=== PATIENT | female | born 1980 | race Caucasian/White ===

== ENCOUNTER 2017-09-09 23:58 | Emergency (ER) | payer MEDICAID, SELFPAY ==
[2017-09-09 23:58] VITALS: BP 126/78; PULSE 130; RESP 19; TEMP 36.7; O2SAT 95; BMI 24.7
[2017-09-10 00:45] LABS: Vista UDS pH Range 6
[2017-09-10 00:48] LABS: Absolute Lymphocyte Count 3.48 X10^3/ul (0.83-4.51); Basophil# 0.03 X10^3/uL; Basophil% 0.4 % (0-1); Eosinophil# 0.46 X10^3/uL; Eosinophils% 5.5 % (0-5); Hematocrit 43.5 % (37-47); Hemoglobin 15.2 g/dl (12.0-15.0); Lymphocyte # 3.48 X10^3/ul (4.0); Lymphocyte % 41.9 % (19-41); Mean Corp Hgb Conc 34.9 g/gl (32-36); Mean Corpuscular Hgb 30.8 pg (27.0-32.0); Mean Corpuscular Volume 88.1 fL (81-99); Mean Platelet Vol. 10.4 fl (6.2-12.0); Monocyte% 3.6 % (0-10); Neutrophil # 4.03 X10^3/uL (2.7-7.7); Neutrophil % 48.5 % (47-70); Platelet Count 323 K/mm3 (150-450); RBC Distribution Width CV 12.8 % (11.6-14.6); RBC Distribution Width SD 40.9 fl (35.1-43.9); Red Blood Count 4.94 M/mm3 (4.2-5.4); White Blood Count 8.3 K/mm3 (4.4-11.0)
[2017-09-10 00:53] LABS: Amphetamine Urine VISTA NEGATIVE (<1000 ng/mL); Barbiturate Urine VISTA NEGATIVE (< 200 ng/mL); Benzodiazepine Urine VISTA NEGATIVE (< 200 ng/mL); Cocaine Urine VISTA NEGATIVE (< 300 ng/mL); Ecstacy Urine VISTA NEGATIVE (< 500 ng/mL); Methadone Urine VISTA NEGATIVE (< 300 ng/mL); PCP Urine VISTA NEGATIVE (< 25 ng/mL); THC Urine VISTA POSITIVE (< 50 ng/mL)
[2017-09-10 00:53] LABS: POSITIVE COUNT NO; POSITIVE DIFFERENTIAL NO; POSITIVE MORPHOLOGY NO
[2017-09-10 00:55] LABS: Anion Gap 15 (5-15); BUN 9 mg/dL (7-18); BUN/Creat Ratio 12.6 RATIO (10-20); Chloride 100 mmol/L (98-107); Creatinine, Serum 0.72 mg/dL (0.55-1.02); EST Glomerular Filtration Rate 99 mL/min (>60); Est Glom Filt Rate - Afr Amer 120 mL/min (>60); Estimated Creatinine Clearance 91.07 ml/min; Glucose 397 mg/dL (74-106); Potassium 3.4 mmol/L (3.5-5.1); Sodium Level 138 mmol/L (136-145)
[2017-09-10 00:58] VITALS: RESP 16
[2017-09-10 01:00] VITALS: RESP 14
[2017-09-10 01:00] LABS: Pregnancy, Serum, hCG Quali. NEGATIVE Negative (0-9 Nonpreg)
[2017-09-10 03:08] VITALS: RESP 16
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
== END 2017-09-10 03:47 | disposition home or self-care (01) ==
PROVIDERS: Emergency Provider Emergency Medicine; Family Provider Family Medicine; PCP Family Medicine
DX: Z04.6 Encounter for general psychiatric examination, requested by authority (principal); E10.65 Type 1 diabetes mellitus with hyperglycemia; E10.40 Type 1 diabetes mellitus with diabetic neuropathy, unspecified; Z79.84 Long term (current) use of oral hypoglycemic drugs; F41.9 Anxiety disorder, unspecified; Z79.899 Other long term (current) drug therapy; Z72.0 Tobacco use
CPT/HCPCS: 36415; 80048; 80307; 80320; 84703; 85025; 99284; G0480

== ENCOUNTER → 2017-09-17 16:49 | Outpatient (CLI) | payer MEDICAID, SELFPAY ==
--- NOTE | 2017-09-17 17:05 | RAD_ITS ---
STUDY: X-RAY - RIGHT RADIUS AND ULNA REASON FOR EXAM: Female, 36 years old. Lateral pain since Friday. No known injury. TECHNIQUE: 2 view(s) of the forearm. COMPARISON: None. FINDINGS: There is no demonstrated soft tissue swelling. Normal visualized radius. Normal visualized ulna. There is no acute fracture, dislocation or destructive osseous pathology. The wrist and ankle are grossly unremarkable. RAD/Forearm 2 Views IMPRESSION: Normal x-ray examination of the radius and ulna. Electronically Signed: Dane Rader DO at 18:06 EST Tel [phone], Service support ,
== END ==
PROVIDERS: Family Provider Family Medicine; PCP Family Medicine; Visit Provider Physician Assistant
DX: S50.11XA Contusion of right forearm, initial encounter (principal)
CPT/HCPCS: 73090

== ENCOUNTER 2017-12-09 17:18 | Emergency (ER) | payer MEDICAID, SELFPAY ==
[2017-12-09 17:19] VITALS: BP 124/83; PULSE 95; RESP 16; TEMP 36.8; O2SAT 100; BMI 22.1
--- NOTE | 2017-12-09 17:35 | RAD_ITS ---
STUDY: X-RAY - PELVIS REASON FOR EXAM: Female, 36 years old. Fall. Pain. TECHNIQUE: One view of the pelvis was obtained. COMPARISON: None. FINDINGS: There is a non-specific bowel gas pattern. Normal visualized soft tissue structures. Normal bilateral iliac wings, sacroiliac joints and visualized sacrum. Normal visualized bilateral superior and inferior pubic rami. Normal pubic symphysis. Normal ischial tuberosities. Normal visualized right femoral head. Normal right acetabulum. Normal right hip joint. Normal visualized left femoral head. Normal left acetabulum. Normal left hip joint. RAD/Pelvis 1 or 2 Views IMPRESSION: Normal x-ray examination of the pelvis. Electronically Signed: Gunner Luong MD at 18:13 EDT , Service support ,
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
--- NOTE | 2017-12-09 18:40 | ED.DEP ---
ED Disposition - Plan for ED Patient: Chief Complaint: Lower Extremity Injury Instructions: ED Contusion Hip, ED Lipoma Referrals: Rajesh Frye MD [Primary Care Provider] - Rajesh Redmond MD [[facility]] -
[2017-12-09 18:49] VITALS: RESP 18
== END 2017-12-09 18:50 | disposition home or self-care (01) ==
PROVIDERS: Emergency Provider Emergency Medicine; Family Provider Family Medicine; PCP Family Medicine
DX: S70.02XA Contusion of left hip, initial encounter (principal); W18.39XA Other fall on same level, initial encounter; Y93.89 Activity, other specified; Y92.000 Kitchen of unspecified non-institutional (private) residence as the place of occurrence of the external cause; M79.89 Other specified soft tissue disorders; E11.40 Type 2 diabetes mellitus with diabetic neuropathy, unspecified; Z79.4 Long term (current) use of insulin; Z79.84 Long term (current) use of oral hypoglycemic drugs; Z79.899 Other long term (current) drug therapy; Z72.0 Tobacco use
CPT/HCPCS: 72170; 99282

== ENCOUNTER 2017-12-16 17:23 | Emergency (ER) | payer MEDICAID, SELFPAY ==
[2017-12-16 17:23] VITALS: BP 111/88; PULSE 125; RESP 16; TEMP 37.5; O2SAT 98; BMI 21.6
--- NOTE | 2017-12-16 18:54 | ED.VISSUMM ---
- ER Visit Summary Date of Service: 12/16/17 Chief Complaint: Left leg numbness and right hand numbness History of Present Illness: The patient is a [address] Espino. She reports that she has left leg numbness that began 2 days ago. She reports the area was swollen. However, the swelling is completely resolved. She has right hand numbness that began today. She denies any neck or back pain. She denies any weakness. No headache. She denies any trauma. No fall, MVA, or change in activity. Review of systems: General: No fever, chills, cold sweats. Cardiovascular: No chest pain, palpitations. Respiratory: No cough, shortness of breath, dyspnea on exertion. Gastrointestinal: No abdominal pain, nausea, vomiting, diarrhea, melena, or hematochezia. Genitourinary: No dysuria, frequency, hematuria. Skin: No rash. Neuro: No headache, weakness. Physical Examination: Vitals: Stable. Afebrile. General: Well-nourished and well-developed. Head: Normocephalic atraumatic. Neck: Supple, no lymphadenopathy. No JVD. Nontender. Cardiovascular: Regular rate and rhythm. No murmurs. Respiratory: No respiratory distress. Clear to auscultation bilaterally. Abdominal: Soft, nontender, nondistended, normal bowel sounds. No guarding, rebound, or peritoneal signs. Back: Nontender. Extremities: Nontender, no edema. 2+ radial and dorsalis pedis pulses. 2 second capillary refill. Skin: Normal color, no rash. Neurologic: Alert and oriented ?3. Cranial nerves II through XII are intact. Normal strength. Subjective paresthesias in her right hand and left leg. Psych: Normal affect. Test Results: Patient refused labs and CT. Emergency Department Course and Treatment: Patient does not want any further evaluation at this time. Treatment Plan: Discussion the patient that I do not have an explanation for her symptoms. She will be discharged instructions to follow-up with primary care physician as soon as possible. Return to the emergency department for any worsening symptoms. Disposition: To home in improved and stable condition. Impression: 1. Paresthesias right hand/left leg. This note was generated with [employer] Retirement Solutionsation software. It may contain incorrect words, spelling, and punctuation that were not noted in review of the chart prior to signing ED Disposition - Plan for ED Patient: Disposition: Home or Assisted Living Chief Complaint: Numb/Ting Instructions: ED Neuropathy Peripheral Referrals: Rajesh Frye MD [Primary Care Provider] - 1 Day for another exam
== END 2017-12-16 19:25 | disposition home or self-care (01) ==
LOC: ED 19:03
PROVIDERS: Emergency Provider Emergency Medicine; Family Provider Family Medicine; PCP Family Medicine
DX: R20.2 Paresthesia of skin (principal); E11.9 Type 2 diabetes mellitus without complications; F10.20 Alcohol dependence, uncomplicated; Y90.9 Presence of alcohol in blood, level not specified; Z79.84 Long term (current) use of oral hypoglycemic drugs; Z79.4 Long term (current) use of insulin; Z72.0 Tobacco use
CPT/HCPCS: 99283

== ENCOUNTER → 2017-12-22 09:50 | Outpatient (CLI) | payer MEDICAID, SELFPAY ==
--- NOTE | 2017-12-22 09:50 | DT_ITS ---
This patient was seen during an EMR downtime December 22, 2017 - December 29, 2017. This patient may have a combination of paper and electronic documentation or all paper documentation. All documentation is viewable within the e-chart portion of [employer] for each patient visit.
[2017-12-28 11:19] LABS: Chlamydia Trachomatis by PCR Negative (Negative); Neisserai gonorrhoeae by PCR Negative (Negative); Probe Check PASS; Sample Adequacy Control PASS; Specimen Processing Control PASS
== END ==
PROVIDERS: Family Provider Family Medicine; PCP Family Medicine; Visit Provider Obstetrics & Gynecology
DX: Z11.3 Encounter for screening for infections with a predominantly sexual mode of transmission (principal)
CPT/HCPCS: 87491; 87591

== ENCOUNTER → 2017-12-31 09:03 | Outpatient (CLI) | payer MEDICAID, SELFPAY ==
[2017-12-31 09:08] LABS: Bacteria 0 SEEN /hpf (None Seen); Mucous, Urine 0 SEEN /hpf (<or=2+); Red Blood Cells-Urine 0 SEEN /hpf (0-5); White Blood Cells 0 SEEN /hpf (0-5)
[2017-12-31 10:36] LABS: Absolute Lymphocyte Count 1.63 X10^3/ul (0.83-4.51); Basophil# 0.02 X10^3/uL; Basophil% 0.2 % (0-1); Eosinophil# 0.05 X10^3/uL; Eosinophils% 0.6 % (0-5); Hemoglobin 15.8 g/dl (12.0-15.0); Lymphocyte # 1.63 X10^3/ul (4.0); Lymphocyte % 20.2 % (19-41); Mean Corp Hgb Conc 33.6 g/gl (32-36); Mean Corpuscular Hgb 31.2 pg (27.0-32.0); Mean Corpuscular Volume 92.9 fL (81-99); Mean Platelet Vol. 10.7 fl (6.2-12.0); Monocyte# 0.37 X10^3/uL; Monocyte% 4.6 % (0-10); Neutrophil # 5.97 X10^3/uL (2.7-7.7); Neutrophil % 74.2 % (47-70); Platelet Count 312 K/mm3 (150-450); RBC Distribution Width CV 13.8 % (11.6-14.6); RBC Distribution Width SD 45.1 fl (35.1-43.9); Red Blood Count 5.06 M/mm3 (4.2-5.4); White Blood Count 8.1 K/mm3 (4.4-11.0)
[2017-12-31 10:48] LABS: Color, Urine Yellow (Yellow); Glucose, Dipstick 1000 mg/dl (Normal); Hemoglobin A1c 12.9 % (4.2-6.3); Ketone-Dipstick 15 mg/dl (Negative); Leukocyte Esterase-Dipstick Negative /ul (Negative); Nitrite-Dipstick Negative (Negative); Occult Blood-Urine Negative /ul (Negative); Protein-Dipstick Negative (Negative); Specific Gravity, Urine 1.015 (1.002-1.030); Urine Bilirubin Dipstick Negative (Negative); Urine Clarity Sl. Cloudy (Clear); Urine Urobilinogen Normal (Normal)
[2017-12-31 11:12] LABS: Squamous Epithelial Cells - UA 0-5 SEEN /hpf (5-10)
[2017-12-31 11:14] LABS: POSITIVE COUNT NO; POSITIVE DIFFERENTIAL NO; POSITIVE MORPHOLOGY NO
[2017-12-31 11:37] LABS: Vitamin B12 473 pg/mL (211-911)
[2017-12-31 11:41] LABS: ALB/GLOB Ratio 0.9 RATIO (0.9-2.4); AST(SGOT) 26 U/L (15-37); Alanine Aminotransfer ALT/SGPT 26 U/L (13-56); Albumin, Serum 3.5 g/dL (3.2-5.0); Alkaline Phosphatase 124 U/L (45-117); Anion Gap 13 (5-15); BUN 11 mg/dL (7-18); BUN/Creat Ratio 15.4 RATIO (10-20); Calcium,Total 8.8 mg/dL (8.5-10.1); Chloride 99 mmol/L (98-107); Cholesterol 204 mg/dL (200); Creatinine, Serum 0.71 mg/dL (0.55-1.02); EST Glomerular Filtration Rate 99 mL/min (>60); Est Glom Filt Rate - Afr Amer 120 mL/min (>60); Ferritin 20 ng/mL (8-252); Glucose 341 mg/dL (74-106); High Density Lipoprotein 50 mg/dL; Iron 40 ug/dL (50-170); Iron Binding Capacity,Total 337 ug/dL (250-450); Potassium 4.1 mmol/L (3.5-5.1); Protein, Total 7.5 g/dL (6.4-8.2); Sodium Level 133 mmol/L (136-145); Triglycerides 449 mg/dL
[2017-12-31 11:52] LABS: Microalbumin,Random Urine 5.6 mg/L (NO RANGE EST.); Microalbumin:Creatinine Ratio 7.2 mg/g CRE (<30 mg/g CRE)
== END ==
PROVIDERS: Family Provider Family Medicine; PCP Family Medicine; Visit Provider Family Medicine
DX: E11.9 Type 2 diabetes mellitus without complications (principal); D64.9 Anemia, unspecified; Z72.0 Tobacco use
CPT/HCPCS: 36415; 80053; 80061; 81001; 82043; 82570; 82607; 82728; 82746; 83036; 83540; 83550; 85025

== ENCOUNTER → 2018-02-10 09:19 | Outpatient (CLI) | payer MEDICAID, SELFPAY ==
[2018-02-10 12:24] LABS: Absolute Lymphocyte Count 1.36 X10^3/ul (0.83-4.51); Absolute Neutrophil Count 4.7 X10^3/uL (2.0-7.7); Basophil# 0.01 X10^3/uL; Basophil% 0.1 % (0-1); Eosinophil# 0.03 X10^3/uL; Eosinophils% 0.4 % (0-5); Hematocrit 43.4 % (37-47); Lymphocyte # 1.36 X10^3/ul (4.0); Lymphocyte % 19.9 % (19-41); Mean Corp Hgb Conc 32.3 g/gl (32-36); Mean Corpuscular Hgb 31.1 pg (27.0-32.0); Mean Corpuscular Volume 96.4 fL (81-99); Mean Platelet Vol. 10.1 fl (6.2-12.0); Monocyte# 0.72 X10^3/uL; Monocyte% 10.5 % (0-10); Neutrophil # 4.71 X10^3/uL (2.7-7.7); Neutrophil % 69.1 % (47-70); Platelet Count 230 K/mm3 (150-450); RBC Distribution Width CV 14.9 % (11.6-14.6); RBC Distribution Width SD 52.4 fl (35.1-43.9); White Blood Count 6.8 K/mm3 (4.4-11.0)
[2018-02-10 12:26] LABS: POSITIVE COUNT NO; POSITIVE DIFFERENTIAL NO; POSITIVE MORPHOLOGY NO
[2018-02-10 12:46] LABS: Ferritin 28 ng/mL (8-252); Iron 113 ug/dL (50-170); Iron Binding Capacity,Total 409 ug/dL (250-450)
== END ==
PROVIDERS: Family Provider Family Medicine; PCP Family Medicine; Visit Provider Family Medicine
DX: E61.1 Iron deficiency (principal); D64.9 Anemia, unspecified; Z72.0 Tobacco use
CPT/HCPCS: 36415; 82728; 83540; 83550; 85025

== ENCOUNTER → 2018-04-09 11:13 | Outpatient (CLI) | payer MEDICAID, SELFPAY ==
--- NOTE | 2018-04-09 11:17 | NM_ITS ---
CLINICAL: 37-year-old female with reported history of early satiety. SEMI-SOLID PHASE 99m Tc SULFUR COLLOID GASTRIC EMPTYING STUDY COMPARISON: None available FINDINGS: The patient was administered 1.1 mCi of 99m Tc sulfur colloid mixed with oatmeal and consumed per os. Image acquisitions in the anterior-posterior projections for a total of 60 minutes. There is prompt visualization of the stomach. There is no gastroesophageal reflux identified. Zero order kinetics are maintained throughout the duration of the acquisitions. The T1/2 linear fit was calculated to be 28.76 minutes, (Normal: 12-56 minutes). NM/Gastric Emptying Study IMPRESSION: 1. NORMAL 99m Tc sulfur colloid semi-solid phase (oatmeal) gastric emptying imaging examination. A. There is normal and preserved semi-solid phase gastric emptying compared to normal controls. (Immanuel et al, J Nucl Med Tech 38: 186, 2010). Electronically Signed: Rigo Washington DO at 23:05 EDT Tel , Service support ,
== END ==
PROVIDERS: Family Provider Family Medicine; PCP Family Medicine; Visit Provider Family Medicine
DX: R68.81 Early satiety (principal)
CPT/HCPCS: 78264; A9541

== ENCOUNTER → 2018-04-29 11:06 | Outpatient (CLI) | payer MEDICAID, SELFPAY ==
[2018-04-29 12:35] LABS: Absolute Lymphocyte Count 1.19 X10^3/ul (0.83-4.51); Absolute Neutrophil Count 3.6 X10^3/uL (2.0-7.7); Basophil# 0.01 X10^3/uL; Basophil% 0.2 % (0-1); Eosinophil# 0.02 X10^3/uL; Eosinophils% 0.4 % (0-5); Hematocrit 38.9 % (37-47); Hemoglobin 13.3 g/dl (12.0-15.0); Lymphocyte # 1.19 X10^3/ul (4.0); Lymphocyte % 23.2 % (19-41); Mean Corp Hgb Conc 34.2 g/gl (32-36); Mean Corpuscular Hgb 32.4 pg (27.0-32.0); Mean Corpuscular Volume 94.9 fL (81-99); Mean Platelet Vol. 10.6 fl (6.2-12.0); Monocyte# 0.33 X10^3/uL; Monocyte% 6.4 % (0-10); Neutrophil # 3.58 X10^3/uL (2.7-7.7); Neutrophil % 69.6 % (47-70); Platelet Count 189 K/mm3 (150-450); RBC Distribution Width CV 12.4 % (11.6-14.6); RBC Distribution Width SD 42.2 fl (35.1-43.9); White Blood Count 5.1 K/mm3 (4.4-11.0)
[2018-04-29 12:49] LABS: POSITIVE COUNT NO; POSITIVE DIFFERENTIAL NO; POSITIVE MORPHOLOGY NO
[2018-04-29 12:52] LABS: Ferritin 105 ng/mL (8-252); Iron 89 ug/dL (50-170); Iron Binding Capacity,Total 260 ug/dL (250-450)
== END ==
PROVIDERS: Family Provider Family Medicine; PCP Family Medicine; Visit Provider Family Medicine
DX: E61.1 Iron deficiency (principal)
CPT/HCPCS: 36415; 82728; 83540; 83550; 85025

== ENCOUNTER 2018-05-31 05:16 | Emergency (ER) | payer MEDICAID, SELFPAY ==
[2018-05-31 05:18] VITALS: BP 149/105; PULSE 118; RESP 15; TEMP 36.9; O2SAT 97; BMI 23.8
[2018-05-31] MEDS: 0.9% Normal Saline 1,000 ML 1000 ML IV (06:05)
[2018-05-31] MEDS: Ondansetron 4 MG/2 ML Vial IV (06:07)
[2018-05-31] MEDS: Ketorolac 30 MG/ML Syringe IV (06:07)
[2018-05-31 06:23] LABS: Absolute Lymphocyte Count 1.66 X10^3/ul (0.83-4.51); Absolute Neutrophil Count 2.7 X10^3/uL (2.0-7.7); Basophil# 0.01 X10^3/uL; Basophil% 0.2 % (0-1); Eosinophil# 0.05 X10^3/uL; Eosinophils% 1.1 % (0-5); Hematocrit 47.1 % (37-47); Hemoglobin 15.7 g/dl (12.0-15.0); Lymphocyte # 1.66 X10^3/ul (4.0); Lymphocyte % 35.2 % (19-41); Mean Corp Hgb Conc 33.3 g/gl (32-36); Mean Corpuscular Hgb 33.1 pg (27.0-32.0); Mean Corpuscular Volume 99.2 fL (81-99); Mean Platelet Vol. 10.2 fl (6.2-12.0); Monocyte# 0.33 X10^3/uL; Neutrophil # 2.66 X10^3/uL (2.7-7.7); Neutrophil % 56.5 % (47-70); POSITIVE COUNT NO; POSITIVE DIFFERENTIAL NO; POSITIVE MORPHOLOGY NO; Platelet Count 166 K/mm3 (150-450); RBC Distribution Width CV 14.1 % (11.6-14.6); RBC Distribution Width SD 50.9 fl (35.1-43.9); Red Blood Count 4.75 M/mm3 (4.2-5.4); White Blood Count 4.7 K/mm3 (4.4-11.0)
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
--- NOTE | 2018-05-31 06:40 | RAD_ITS ---
STUDY: X-RAY - LEFT HUMERUS REASON FOR EXAM: Female, 37 years old. Left humeral pain TECHNIQUE: 2 view(s) of the humerus. COMPARISON: None. FINDINGS: A periarticular plate and multiple screws have been used to transfix a healed or healing fracture involving the proximal and of the humerus. There are no acute fractures. The metallic hardware is in good position RAD/Humerus min 2 Views IMPRESSION: And internally fixed healed or healing fracture involving the proximal end of the humerus. No acute fracture Electronically Signed: Myron Damon MD at 6:58 EST Tel , Service support ,
[2018-05-31 07:12] LABS: ALB/GLOB Ratio 0.8 RATIO (0.9-2.4); AST(SGOT) 155 U/L (15-37); Alanine Aminotransfer ALT/SGPT 92 U/L (13-56); Albumin, Serum 3.8 g/dL (3.2-5.0); Alkaline Phosphatase 145 U/L (45-117); Anion Gap 13 (5-15); BUN 7 mg/dL (7-18); BUN/Creat Ratio 9.8 RATIO (10-20); Calcium,Total 9.9 mg/dL (8.5-10.1); Chloride 102 mmol/L (98-107); Creatinine, Serum 0.71 mg/dL (0.55-1.02); EST Glomerular Filtration Rate 99 mL/min (>60); Est Glom Filt Rate - Afr Amer 120 mL/min (>60); Estimated Creatinine Clearance 91.48 ml/min; Glucose 219 mg/dL (74-106); Lipase 162 U/L (73-393); Potassium 4.6 mmol/L (3.5-5.1); Protein, Total 8.8 g/dL (6.4-8.2); Sodium Level 141 mmol/L (136-145)
--- NOTE | 2018-05-31 07:19 | ED.DEP ---
ED Disposition - Plan for ED Patient: Chief Complaint: Other, Pain/Inj Instructions: ED Abdominal Pain Unkn Cause, ED Muscle Aching Referrals: Rajesh Frye MD [Primary Care Provider] -
[2018-05-31 07:34] VITALS: BP 142/90; PULSE 71; RESP 14; O2SAT 100
== END 2018-05-31 07:36 | disposition home or self-care (01) ==
PROVIDERS: Emergency Provider Emergency Medicine; Family Provider Family Medicine; PCP Family Medicine
DX: R10.13 Epigastric pain (principal); M79.622 Pain in left upper arm; E11.9 Type 2 diabetes mellitus without complications; Z79.4 Long term (current) use of insulin; Z79.899 Other long term (current) drug therapy; Z72.0 Tobacco use
CPT/HCPCS: 73060; 80053; 83690; 85025; 96361; 96374; 96375; 99283; J7030; A4216; J2405

== ENCOUNTER → 2018-06-01 11:31 | Outpatient (CLI) | payer MEDICAID, SELFPAY ==
[2018-06-01 11:36] LABS: Bacteria 0 SEEN /hpf (None Seen); Mucous, Urine 0 SEEN /hpf (<or=2+); Red Blood Cells-Urine 0 SEEN /hpf (0-5); White Blood Cells 0 SEEN /hpf (0-5)
[2018-06-01 15:38] LABS: Absolute Lymphocyte Count 1.45 X10^3/ul (0.83-4.51); Absolute Neutrophil Count 3.8 X10^3/uL (2.0-7.7); Basophil# 0.01 X10^3/uL; Basophil% 0.2 % (0-1); Eosinophil# 0.02 X10^3/uL; Eosinophils% 0.3 % (0-5); Hematocrit 42.7 % (37-47); Hemoglobin 14.1 g/dl (12.0-15.0); Lymphocyte # 1.45 X10^3/ul (4.0); Lymphocyte % 25.3 % (19-41); Mean Corpuscular Hgb 32.6 pg (27.0-32.0); Mean Corpuscular Volume 98.6 fL (81-99); Mean Platelet Vol. 10.9 fl (6.2-12.0); Monocyte# 0.47 X10^3/uL; Monocyte% 8.2 % (0-10); Neutrophil # 3.77 X10^3/uL (2.7-7.7); Neutrophil % 65.8 % (47-70); Platelet Count 145 K/mm3 (150-450); RBC Distribution Width CV 13.6 % (11.6-14.6); RBC Distribution Width SD 47.9 fl (35.1-43.9); Red Blood Count 4.33 M/mm3 (4.2-5.4); White Blood Count 5.7 K/mm3 (4.4-11.0)
[2018-06-01 15:47] LABS: ALB/GLOB Ratio 0.8 RATIO (0.9-2.4); AST(SGOT) 28 U/L (15-37); Alanine Aminotransfer ALT/SGPT 51 U/L (13-56); Albumin, Serum 3.3 g/dL (3.2-5.0); Alkaline Phosphatase 138 U/L (45-117); Anion Gap 12 (5-15); BUN 7 mg/dL (7-18); BUN/Creat Ratio 11.5 RATIO (10-20); Chloride 100 mmol/L (98-107); Cholesterol 180 mg/dL (200); Creatinine, Serum 0.61 mg/dL (0.55-1.02); EST Glomerular Filtration Rate 119 mL/min (>60); Est Glom Filt Rate - Afr Amer 144 mL/min (>60); Ferritin 85 ng/mL (8-252); Glucose 257 mg/dL (74-106); High Density Lipoprotein 84 mg/dL; Iron 89 ug/dL (50-170); Iron Binding Capacity,Total 307 ug/dL (250-450); Potassium 3.6 mmol/L (3.5-5.1); Protein, Total 7.3 g/dL (6.4-8.2); Sodium Level 136 mmol/L (136-145); Triglycerides 171 mg/dL; Very Low Density Lipoprotein 34 mg/dL (5-40)
[2018-06-01 16:01] LABS: POSITIVE COUNT NO; POSITIVE DIFFERENTIAL NO; POSITIVE MORPHOLOGY NO
[2018-06-01 16:33] LABS: Color, Urine Yellow (Yellow); Glucose, Dipstick 1000 mg/dl (Normal); Ketone-Dipstick 5 mg/dl (Negative); Leukocyte Esterase-Dipstick Negative /ul (Negative); Nitrite-Dipstick Negative (Negative); Occult Blood-Urine Negative /ul (Negative); Protein-Dipstick Negative (Negative); Specific Gravity, Urine 1.015 (1.002-1.030); Urine Bilirubin Dipstick Negative (Negative); Urine Clarity Clear (Clear); Urine Urobilinogen Normal (Normal)
[2018-06-01 16:41] LABS: Squamous Epithelial Cells - UA 0-5 SEEN /hpf (5-10)
[2018-06-01 16:54] LABS: Microalbumin,Random Urine < 5.0 mg/L (NO RANGE EST.)
== END ==
PROVIDERS: Family Provider Family Medicine; PCP Family Medicine; Visit Provider Family Medicine
DX: E61.1 Iron deficiency (principal); E11.9 Type 2 diabetes mellitus without complications; E78.1 Pure hyperglyceridemia; Z72.0 Tobacco use
CPT/HCPCS: 36415; 80053; 80061; 81001; 82043; 82570; 82728; 83036; 83540; 83550; 85025

== ENCOUNTER → 2018-09-01 08:56 | Outpatient (CLI) | payer MEDICAID, SELFPAY ==
[2018-09-01 09:00] LABS: Bacteria 0 SEEN /hpf (None Seen); Mucous, Urine 0 SEEN /hpf (<or=2+); Red Blood Cells-Urine 0 SEEN /hpf (0-5); White Blood Cells 0 SEEN /hpf (0-5)
[2018-09-01 10:32] LABS: Color, Urine Yellow (Yellow); Glucose, Dipstick 1000 mg/dl (Normal); Ketone-Dipstick Negative (Negative); Leukocyte Esterase-Dipstick Negative /ul (Negative); Nitrite-Dipstick Negative (Negative); Occult Blood-Urine Negative /ul (Negative); Protein-Dipstick Negative (Negative); Urine Bilirubin Dipstick Negative (Negative); Urine Clarity Clear (Clear); Urine Urobilinogen Normal (Normal)
[2018-09-01 10:33] LABS: Absolute Lymphocyte Count 2.93 X10^3/ul (0.83-4.51); Absolute Neutrophil Count 4.5 X10^3/uL (2.0-7.7); Basophil# 0.02 X10^3/uL; Basophil% 0.2 % (0-1); Eosinophil# 0.12 X10^3/uL; Eosinophils% 1.5 % (0-5); Hematocrit 43.6 % (37-47); Hemoglobin 14.3 g/dl (12.0-15.0); Lymphocyte # 2.93 X10^3/ul (4.0); Lymphocyte % 35.7 % (19-41); Mean Corp Hgb Conc 32.8 g/gl (32-36); Mean Corpuscular Hgb 31.2 pg (27.0-32.0); Mean Corpuscular Volume 95.2 fL (81-99); Mean Platelet Vol. 10.8 fl (6.2-12.0); Monocyte# 0.58 X10^3/uL; Monocyte% 7.1 % (0-10); Neutrophil # 4.54 X10^3/uL (2.7-7.7); Neutrophil % 55.4 % (47-70); Platelet Count 248 K/mm3 (150-450); RBC Distribution Width CV 13.2 % (11.6-14.6); RBC Distribution Width SD 45.2 fl (35.1-43.9); Red Blood Count 4.58 M/mm3 (4.2-5.4); White Blood Count 8.2 K/mm3 (4.4-11.0)
[2018-09-01 10:35] LABS: POSITIVE COUNT NO; POSITIVE DIFFERENTIAL NO; POSITIVE MORPHOLOGY NO
[2018-09-01 10:47] LABS: Squamous Epithelial Cells - UA 0-5 SEEN /hpf (5-10)
[2018-09-01 11:02] LABS: AST(SGOT) 13 U/L (15-37); Alanine Aminotransfer ALT/SGPT 17 U/L (13-56); Albumin, Serum 3.3 g/dL (3.2-5.0); Alkaline Phosphatase 91 U/L (45-117); Anion Gap 7 (5-15); BUN 13 mg/dL (7-18); Calcium,Total 8.5 mg/dL (8.5-10.1); Chloride 101 mmol/L (98-107); Cholesterol 214 mg/dL (200); Creatinine, Serum 0.62 mg/dL (0.55-1.02); EST Glomerular Filtration Rate 116 mL/min (>60); Est Glom Filt Rate - Afr Amer 140 mL/min (>60); Globulin 3.2 g/dL (2.2-4.2); Glucose 264 mg/dL (74-106); High Density Lipoprotein 38 mg/dL; Potassium 3.7 mmol/L (3.5-5.1); Protein, Total 6.5 g/dL (6.4-8.2); Sodium Level 133 mmol/L (136-145); Triglycerides 214 mg/dL; Very Low Density Lipoprotein 43 mg/dL (5-40)
[2018-09-01 11:15] LABS: Hemoglobin A1c 13.5 % (4.2-6.3)
== END ==
PROVIDERS: Family Provider Family Medicine; PCP Family Medicine; Visit Provider Family Medicine
DX: E11.9 Type 2 diabetes mellitus without complications (principal); E78.1 Pure hyperglyceridemia; Z72.0 Tobacco use
CPT/HCPCS: 36415; 80053; 80061; 81001; 83036; 85025

== ENCOUNTER 2018-12-27 00:42 | Emergency (ER) | payer MEDICAID, SELFPAY ==
[2018-12-27 00:46] VITALS: BP 126/98; PULSE 135; RESP 15; TEMP 37.2; O2SAT 97; BMI 29.0
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
[2018-12-27 01:31] LABS: Internal QC Validated? YES +Cl - CLEAR BKGD; Pregnancy, Serum, hCG Quali. NEGATIVE Negative
[2018-12-27 01:34] LABS: Absolute Lymphocyte Count 3.04 X10^3/ul (0.83-4.51); Absolute Neutrophil Count 6.2 X10^3/uL (2.0-7.7); Basophil# 0.06 X10^3/uL; Basophil% 0.6 % (0-1); Eosinophil# 0.07 X10^3/uL; Eosinophils% 0.7 % (0-5); Hematocrit 44.5 % (37-47); Hemoglobin 15.7 g/dl (12.0-15.0); Lymphocyte # 3.04 X10^3/ul (4.0); Lymphocyte % 30.7 % (19-41); Mean Corp Hgb Conc 35.3 g/gl (32-36); Mean Corpuscular Volume 87.9 fL (81-99); Mean Platelet Vol. 10.1 fl (6.2-12.0); Monocyte# 0.52 X10^3/uL; Monocyte% 5.3 % (0-10); Neutrophil # 6.18 X10^3/uL (2.7-7.7); Neutrophil % 62.5 % (47-70); Platelet Count 305 K/mm3 (150-450); RBC Distribution Width CV 13.2 % (11.6-14.6); RBC Distribution Width SD 41.4 fl (35.1-43.9); Red Blood Count 5.06 M/mm3 (4.2-5.4); White Blood Count 9.9 K/mm3 (4.4-11.0)
[2018-12-27 01:36] LABS: POSITIVE COUNT NO; POSITIVE DIFFERENTIAL NO; POSITIVE MORPHOLOGY NO
[2018-12-27 01:39] LABS: ALB/GLOB Ratio 0.8 RATIO (0.9-2.4); AST(SGOT) 20 U/L (15-37); Alanine Aminotransfer ALT/SGPT 18 U/L (13-56); Albumin, Serum 3.6 g/dL (3.2-5.0); Alkaline Phosphatase 103 U/L (45-117); Anion Gap 12 (5-15); BUN 10 mg/dL (7-18); BUN/Creat Ratio 13.3 RATIO (10-20); Calcium,Total 8.7 mg/dL (8.5-10.1); Chloride 104 mmol/L (98-107); Creatinine, Serum 0.75 mg/dL (0.55-1.02); EST Glomerular Filtration Rate 93 mL/min (>60); Est Glom Filt Rate - Afr Amer 112 mL/min (>60); Estimated Creatinine Clearance 85.78 ml/min; Globulin 4.4 g/dL (2.2-4.2); Glucose 188 mg/dL (74-106); Potassium 3.2 mmol/L (3.5-5.1); Sodium Level 141 mmol/L (136-145)
--- NOTE | 2018-12-27 01:45 | ED.RN ---
PT REPORTS SHE WANTS TO LEAVE. DR. HARPER INFORMED. PT REPORTS SHE CALLED FOR A TAXI. PT RIPPED OUT HER OWN IV. PT ASSISTED BACK INTO BED BY BOY GARCIA. DRESSING PLACED OVER SITE. PT LEAVES ROOM, REFUSING TO RETURN TO ED STATING I AM JUST SO STRESSED, I CANNOT HANDLE THIS RIGHT NOW. PT THEN SITS ON SIDE WALK REPORTS I NEED SOME FRESH AIR, I DON'T MEAN TO CAUSE ANY TROUBLE. SECURITY AND [place] PD CONTACTED. PT GETTING UP AND WALKING TOWARD [facility].
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
== END 2018-12-27 02:11 | disposition left against medical advice (07) ==
PROVIDERS: Emergency Provider Emergency Medicine; Family Provider Family Medicine; PCP Family Medicine
DX: N93.9 Abnormal uterine and vaginal bleeding, unspecified (principal); F10.129 Alcohol abuse with intoxication, unspecified; Y90.9 Presence of alcohol in blood, level not specified; Z53.21 Procedure and treatment not carried out due to patient leaving prior to being seen by health care provider; F41.9 Anxiety disorder, unspecified; E11.40 Type 2 diabetes mellitus with diabetic neuropathy, unspecified; Z79.4 Long term (current) use of insulin; Z79.84 Long term (current) use of oral hypoglycemic drugs; Z72.0 Tobacco use
CPT/HCPCS: 80053; 80320; 84703; 85025; 96360; 99285; J7030; J7040; A4216; G0480

== ENCOUNTER 2019-01-23 14:05 | Emergency (ER) | payer MEDICAID, SELFPAY ==
[2019-01-23 14:06] VITALS: BP 114/78; PULSE 109; RESP 15; TEMP 36.9; O2SAT 96; BMI 27.1
--- NOTE | 2019-01-23 14:52 | ED.VIS.GEN ---
History of Present Illness Chief Complaint: Weakness Informant: Patient Onset: Days Context: Gradual Onset Timing: Continuous Current Severity: Moderate Maximum Severity: Moderate Narrative: Patient presents to the emergency department generalized weakness, nausea, and bilateral lower extremity pain. The patient has been on gabapentin for 7 years for neuropathy. She has been unable to get her prescription refilled for the past 4 days. She feels like she is going through withdrawal. She said increasing burning pain in her feet and is just felt generally weak. She denies any fevers or chills. She denies any vomiting. She has not had cough or shortness of breath. She states she has withdrawn from this before and feels very similar. She denies any thoughts of self-harm. Prior similar symptoms: No Recent Illness/Hospitalization: No Past Medical History - Allergies and Home Meds Allergies/Adverse Reactions: Allergies No Known Allergies Allergy (Verified 01/23/19 14:10) Primary Care Physician: Rajesh Frye MD [Primary Care Provider] - Prior records reviewed: Yes Surgical History: - - Left shoulder surgery. Smoking Status: Current every day smoker Alcohol: Occasional Drugs: None - Family History Maternal Family History: Reports: No pertinent history Paternal Family History: Reports: No pertinent history Review of Systems General: Reports: Malaise Eyes: Denies: Visual changes - bilaterally, Diplopia ENT: Denies: Rhinorrhea, Sore throat Cardiovascular: Denies: Chest pain, Palpitations Respiratory: Denies: Dyspnea, Cough, Dyspnea on exertion Gastrointestinal: Reports: Nausea Genitourinary: Denies: Dysuria, Hematuria, Frequency Musculoskeletal: Reports: Myalgias, Arthralgias, Extremity Pain Skin: Denies: Rash, Wounds Neurological: Denies: Headache, Weakness, Numbness Psych: Reports: Anxiety. Denies: Suicidal thoughts, Suicidal ideations Endocrine: Denies: Polyuria Hematologic: Denies: Easy bruising Allergy: Denies: Swelling of the mouth Physical Exam Vital Signs/Narrative: Vital Signs Temp Pulse Resp BP Pulse Ox 01/23/19 14:06 98.4 F 109 H 15 114/78 96 General: Well nourished, Well developed, No Acute Distress Head: Normocephalic, Atraumatic Eyes: Perrl, EOMI ENT: Moist mucous membranes, No rhinorrhea Neck: Supple, Nontender Cardiovascular: Regular rate, Regular rhythm, No murmurs Respiratory: No distress, CTA bilaterally, Chest nontender Abdomen: Soft, Nontender, Nondistended, Normal bowel sounds Back: Nontender, Normal Inspection Extremities: Nontender, No edema Skin: Normal color, No rash Neurological: Alert, Oriented x3, Cranial nerves II-XII grossly intact, Normal Strength, Normal Sensation Psychological: Normal affect, Normal Mood Diagnostic/Tx/Re-eval - Medical Decision Making Patient presents with symptoms of withdrawal. She has a reassuring physical exam. I do not suspect a dangerous process. The patient states that she already has a prescription that is ready for her to [facility], she could just not get a ride there. She will be given her 800 mg tab and was counseled to have her prescription picked up. The patient will be discharged home. ED Disposition - Plan for ED Patient: Disposition: Psychiatric Hospital or Unit Diagnosis: Medication withdrawal Instructions: Med Refill Referrals: Rajesh Frye MD [Primary Care Provider] -
[2019-01-23] MEDS: Gabapentin 800 MG Tablet PO (15:13)
== END 2019-01-23 15:19 | disposition home or self-care (01) ==
LOC: ED 15:04
PROVIDERS: Emergency Provider Emergency Medicine; Family Provider Family Medicine; PCP Family Medicine
DX: F19.239 Other psychoactive substance dependence with withdrawal, unspecified (principal); R53.1 Weakness; G62.9 Polyneuropathy, unspecified; F17.200 Nicotine dependence, unspecified, uncomplicated; Z79.899 Other long term (current) drug therapy
CPT/HCPCS: 99284

== ENCOUNTER → 2019-02-01 | Outpatient (CLI) | payer MEDICAID, SELFPAY ==
[2019-01-23 14:06] VITALS: BMI 27.1
[2019-02-01 09:10] LABS: Red Blood Cells-Urine 0 SEEN /hpf (0-5)
[2019-02-01 10:36] LABS: Absolute Lymphocyte Count 2.27 X10^3/ul (0.83-4.51); Absolute Neutrophil Count 4.4 X10^3/uL (2.0-7.7); Basophil# 0.02 X10^3/uL; Basophil% 0.3 % (0-1); Eosinophil# 0.05 X10^3/uL; Eosinophils% 0.7 % (0-5); Hematocrit 41.6 % (37-47); Lymphocyte # 2.27 X10^3/ul (4.0); Lymphocyte % 31.1 % (19-41); Mean Corp Hgb Conc 33.7 g/gl (32-36); Mean Corpuscular Hgb 29.9 pg (27.0-32.0); Mean Corpuscular Volume 88.9 fL (81-99); Mean Platelet Vol. 11.1 fl (6.2-12.0); Monocyte# 0.53 X10^3/uL; Monocyte% 7.3 % (0-10); Neutrophil # 4.43 X10^3/uL (2.7-7.7); Neutrophil % 60.5 % (47-70); Platelet Count 268 K/mm3 (150-450); RBC Distribution Width CV 13.7 % (11.6-14.6); Red Blood Count 4.68 M/mm3 (4.2-5.4); White Blood Count 7.3 K/mm3 (4.4-11.0)
[2019-02-01 10:37] LABS: POSITIVE COUNT NO; POSITIVE DIFFERENTIAL NO; POSITIVE MORPHOLOGY NO
[2019-02-01 10:42] LABS: Color, Urine Yellow (Yellow); Glucose, Dipstick Normal (Normal); Ketone-Dipstick 5 mg/dl (Negative); Leukocyte Esterase-Dipstick 500 /ul (Negative); Nitrite-Dipstick Negative (Negative); Occult Blood-Urine Negative /ul (Negative); Protein-Dipstick 15 mg/dl (Negative); Specific Gravity, Urine 1.025 (1.002-1.030); Urine Bilirubin Dipstick Negative (Negative); Urine Clarity Sl. Cloudy (Clear); Urine Urobilinogen 1 mg/dl (Normal)
[2019-02-01 10:49] LABS: Bacteria 1+ /hpf (None Seen); Mucous, Urine 2+ /hpf (<or=2+); Squamous Epithelial Cells - UA 0-5 SEEN /hpf (5-10); White Blood Cells 25-50 SEEN /hpf (0-5)
[2019-02-01 11:06] LABS: ALB/GLOB Ratio 0.9 RATIO (0.9-2.4); AST(SGOT) 12 U/L (15-37); Alanine Aminotransfer ALT/SGPT 15 U/L (13-56); Albumin, Serum 3.2 g/dL (3.2-5.0); Alkaline Phosphatase 67 U/L (45-117); Anion Gap 7 (5-15); BUN 6 mg/dL (7-18); BUN/Creat Ratio 9.2 RATIO (10-20); Calcium,Total 8.9 mg/dL (8.5-10.1); Chloride 106 mmol/L (98-107); Cholesterol 132 mg/dL (200); Creatinine, Serum 0.65 mg/dL (0.55-1.02); EST Glomerular Filtration Rate 110 mL/min (>60); Est Glom Filt Rate - Afr Amer 133 mL/min (>60); Ferritin 31 ng/mL (8-252); Globulin 3.5 g/dL (2.2-4.2); Glucose 115 mg/dL (74-106); High Density Lipoprotein 35 mg/dL; Iron 67 ug/dL (50-170); Iron Binding Capacity,Total 333 ug/dL (250-450); PERCENT IRON SATURATION 20.1 % (15.0-55.0); Potassium 3.6 mmol/L (3.5-5.1); Protein, Total 6.7 g/dL (6.4-8.2); Sodium Level 139 mmol/L (136-145); Triglycerides 140 mg/dL; Very Low Density Lipoprotein 28 mg/dL (5-40)
[2019-02-01 11:21] LABS: Microalbumin,Random Urine 11.3 mg/L (NO RANGE EST.); Microalbumin:Creatinine Ratio 4.8 mg/g CRE (<30 mg/g CRE)
[2019-02-01 12:13] LABS: Hemoglobin A1c 9.2 % (4.2-6.3)
== END | disposition home or self-care (01) ==
LOC: MTLAB 09:02
DX: E61.1 Iron deficiency (principal); E78.1 Pure hyperglyceridemia; E11.9 Type 2 diabetes mellitus without complications; Z72.0 Tobacco use
CPT/HCPCS: 36415; 80053; 80061; 81001; 82043; 82570; 82728; 83036; 83540; 83550; 85025

== ENCOUNTER 2019-02-15 02:24 | Emergency (ER) | payer MEDICAID, SELFPAY ==
[2019-02-15 02:25] VITALS: BP 120/91; PULSE 109; RESP 15; TEMP 37.2; O2SAT 98; BMI 28.2
--- NOTE | 2019-02-15 02:32 | RAD_ITS ---
HISTORY: Numbness starting in fingertip of left hand travelling to shoulder - nki EXAM/TECHNIQUE: XR Spine Cervical 4 or 5 Views: COMPARISON: CT cervical spine 05/20/17. FINDINGS: # of images incl. paperwork: 5 No fracture or dislocation or osseous destruction. Anatomic variant fusion of C2 and C3 again demonstrated. Sagittal alignment anatomic. Mild reverse S-shaped scoliosis cervical-thoracic spine again demonstrated. Mild degenerative changes. No acute findings in the soft tissues. RAD/Cerv Spine 4 or 5 Views IMPRESSION: No acute findings. Anatomic variant fusion of C2 and C3 with mild scoliosis. at 0312 Reported and signed by: Adriano Escalante MD Electronically Signed: Adriano Escalante, at 3:11 EDT Tel , Service support ,
--- NOTE | 2019-02-15 02:34 | ED.VIS.GEN ---
History of Present Illness Chief Complaint: Numb/Ting Detail of Chief Complaint: Left upper extremity C6/C7 dermatome Informant: Patient Onset: Today Context: Sudden Onset Timing: Continuous Quality: Tingling, cold and pain left upper extremity Location: C6/C7 dermatome Current Severity: Mild Maximum Severity: Moderate Worsened by: Movement and palpation Relieved by: Nothing Associated Symptoms: No associated motor weakness Narrative: Patient is a 38-year-old [id number] woman who presents with atraumatic pain left trapezius and left upper extremity in C6/C7 dermatome. She complains of pain, tingling and cold sensation. She denies cardiac respiratory symptoms. She denies any other symptoms. Prior similar symptoms: No Recent Illness/Hospitalization: No - Past Medical History (1) Acute on chronic pancreatitis Status: Acute (2) Anxiety Status: Chronic (3) Peripheral neuropathy Status: Chronic (4) Type II diabetes mellitus Status: Chronic Past Medical History - Allergies and Home Meds Allergies/Adverse Reactions: Allergies No Known Allergies Allergy (Verified 01/23/19 14:10) Primary Care Physician: Rajesh Frye MD [Primary Care Provider] - Prior records reviewed: Yes Surgical History: - - Left shoulder surgery. Lives: Alone Smoking Status: Current every day smoker Alcohol: Rare Drugs: None - Family History Maternal Family History: Reports: No pertinent history Paternal Family History: Reports: No pertinent history Review of Systems General: Denies: Chills, Fever, Sweats Eyes: Denies: Visual changes - bilaterally, Diplopia ENT: Denies: Rhinorrhea, Sore throat Cardiovascular: Denies: Chest pain, Palpitations Respiratory: Denies: Dyspnea, Cough, Dyspnea on exertion Gastrointestinal: Denies: Abdominal pain, Nausea, Vomiting, Diarrhea, Melena, Hematochezia Genitourinary: Denies: Dysuria, Hematuria, Frequency Musculoskeletal: Reports: Extremity Pain. Denies: Myalgias, Arthralgias, Neck pain, Back pain, Swelling, -, - Skin: Denies: Rash, Wounds Neurological: Reports: Parasthesia, Numbness. Denies: Headache, Weakness Allergy: Denies: Uticaria, Swelling of the mouth, Swelling of the tongue Physical Exam Vital Signs/Narrative: Vital Signs Temp Pulse Resp BP Pulse Ox 02/15/19 02:25 99.0 F 109 H 15 120/91 H 98 Inital Vital Signs reviewed: Yes General: Well nourished, Well developed, No Acute Distress Head: Normocephalic, Atraumatic Eyes: Perrl, EOMI. Negative for: Pale conjunctiva, Scleral icterus ENT: Moist mucous membranes, No rhinorrhea, - - Ears appear normal. Neck: Supple, Nontender Cardiovascular: Regular rate, Regular rhythm, No murmurs, Normal S1, Normal S2 Respiratory: No distress, CTA bilaterally Extremities: - - Axillary, median, radial and ulnar function intact. Motor strength is 5/5 in all major muscle groups upper extremity. Radial pulses palpable. Biceps, brachialis and triceps reflexes are plus minus and symmetric. Skin: Normal color, No rash. Negative for: Cyanosis, Diaphoresis, Jaundice, No Trauma Neurological: Alert, Oriented x3, Cranial nerves II-XII grossly intact, Normal Strength, Normal Sensation Diagnostic/Tx/Re-eval Chest X-Ray - ED: Read by ED Physician, - - 5 view x-ray of the cervical spine was obtained. There is minimal arthritic changes noted. There is no malalignment. There is no soft tissue swelling noted. There is no narrowing of the foramen. 02/15/19 02:32 Xray Cervical [Cerv Spine 4 or 5 Views] [RAD] Stat - Rhythm Strip Rhythm Strip: Sinus Rhythm Rate: 101 Ectopy: None - Medical Decision Making With abrupt onset of pain and in the distribution of C6/C7 dermatome obtain x-rays of the neck to assess for cervical foramen openings. Also to assess if there is any obvious large osteophytes. Since there is no objective neurologic asymmetry or deficit MRI is not warranted at this time. She was medicated with one [place] tablet and 1 Naprosyn tablet. Patient was discharged prescription for [place] since she has history of diabetes with neuropathy. She was referred to her primary care physician. If symptoms persist may need further outpatient testing. ED Disposition - Plan for ED Patient: Disposition: Home or Assisted Living Diagnosis: Neuropathy, cervical (radicular) Instructions: RADICULOPATHY, Cervical Prescriptions: Hydrocodone Bitart/Apap 5-325 [[place] 5MG-325MG] 1 tab PO Q6H PRN PRN 3 Days #10 tab PRN Reason: Pain Prescription Printed Referrals: Rajesh Frye MD [Primary Care Provider] - 3-5 Days if not improving
[2019-02-15] MEDS: Naproxen 500 MG Tablet PO (02:44)
[2019-02-15] MEDS: HYDROcodone Bitartrate/Apap 5/325 Tablet PO (02:44)
[2019-02-15 03:17] VITALS: BP 120/91; PULSE 99; RESP 15; O2SAT 98
== END 2019-02-15 03:20 | disposition home or self-care (01) ==
PROVIDERS: Emergency Provider Emergency Medicine; Family Provider Family Medicine; PCP Family Medicine
DX: M54.12 Radiculopathy, cervical region (principal); E11.42 Type 2 diabetes mellitus with diabetic polyneuropathy; F17.200 Nicotine dependence, unspecified, uncomplicated; Z79.4 Long term (current) use of insulin; Z79.84 Long term (current) use of oral hypoglycemic drugs
CPT/HCPCS: 72050; 99284

== ENCOUNTER 2019-02-21 11:43 | Emergency (ER) | payer MEDICAID, SELFPAY ==
[2019-02-21 11:43] VITALS: BP 161/102; PULSE 111; RESP 18; TEMP 36.6; O2SAT 98; BMI 29.2
--- NOTE | 2019-02-21 12:18 | ED.DCSUM_ITS ---
History of Present Illness Chief Complaint: Dental Detail of Chief Complaint: Dental pain after extraction Informant: Patient Onset: Weeks Current Severity: Mild Maximum Severity: Moderate Narrative: Patient presents 2 and half weeks status post dental extraction of her left mandibular third molar. She had a cap placed to the second molar. She states that she has recently had increased swelling to the area and increased pain. She is had to cancel 2 appointments with her dentist due to lack of transportation. Last evening she felt like she was started to get swelling underneath her tongue. When she looks at the extraction site she thinks that she can see a piece of tooth remaining in the socket. Past Medical History - Allergies and Home Meds Allergies/Adverse Reactions: Allergies No Known Allergies Allergy (Verified 02/21/19 11:45) Primary Care Physician: Rajesh Frye MD [Primary Care Provider] - Prior records reviewed: Yes Past Medical History: - - Reviewed Surgical History: - - Left shoulder surgery. Smoking Status: Current every day smoker - Family History Maternal Family History: Reports: No pertinent history Paternal Family History: Reports: No pertinent history Review of Systems General: Denies: Chills, Fever Eyes: Denies: Visual changes - bilaterally ENT: Denies: Bilateral ear pain, Sore throat Cardiovascular: Denies: Chest pain Respiratory: Denies: Dyspnea Gastrointestinal: Denies: Abdominal pain Genitourinary: Denies: Dysuria Musculoskeletal: Denies: Arthralgias Skin: Denies: Rash Neurological: Denies: Headache Hematologic: Denies: Easy bruising, Easy bleeding Allergy: Denies: Uticaria Physical Exam Vital Signs/Narrative: Vital Signs Temp Pulse Resp BP Pulse Ox 02/21/19 11:43 98 F 111 H 18 161/102 H 98 Inital Vital Signs reviewed: Yes General: Well nourished, Well developed Eyes: Perrl, EOMI ENT: Moist mucous membranes, TM's clear, - - Left third molar mandibular site is clean. There is a small white lesion noted along the medial gum, not where I would expect to see bone fragment. She may have a small pustule here. I see no evidence of dry socket. Is in place to the second molar without difficulty. There is mild gum edema. She has mild edema to the left lateral neck and submandibular region. There is no sign of Nishant's angina. She is a strong voice and is tolerating secretions well. She is able to lie back and speak without difficulty. Neck: Supple Cardiovascular: Regular rate, Regular rhythm Respiratory: No distress, CTA bilaterally Abdomen: Soft, Nontender Extremities: Nontender Skin: Normal color Neurological: Alert, Oriented x3 Psychological: Normal affect Diagnostic/Tx/Re-eval - Medical Decision Making Patient is given Pen-Vee K along with a short course of [place] for pain. She is to call her dentist tomorrow with an update and to schedule a repeat appointment. She was advised if her swelling worsens she is to return for repeat evaluation. We did discuss Nishant angina and what she should monitor for. Again there is no evidence of Nishant's angina at this time. ED Disposition - Plan for ED Patient: Disposition: Home or Assisted Living Instructions: Dental Pain Prescriptions: Hydrocodone Bitart/Apap 5-325 [[place] 5MG-325MG] 1 tablet PO Q6H PRN PRN 3 Days #10 tablet PRN Reason: Pain Penicillin V Potassium 500 mg PO 4X/DAY #40 tablet Additional Instructions: Follow-up with your dentist as soon as possible
[2019-02-21] MEDS: Penicillin Vk 250 MG Tablet 500 MG PO (12:39)
[2019-02-21] MEDS: HYDROcodone Bitartrate/Apap 5/325 Tablet PO (12:39)
[2019-02-21 12:40] VITALS: RESP 18
== END 2019-02-21 12:40 | disposition home or self-care (01) ==
LOC: ED 12:31
PROVIDERS: Emergency Provider Emergency Medicine; Family Provider Family Medicine; PCP Family Medicine
DX: K08.89 Other specified disorders of teeth and supporting structures (principal); F17.200 Nicotine dependence, unspecified, uncomplicated; Z98.818 Other dental procedure status
CPT/HCPCS: 99283

== ENCOUNTER → 2019-02-24 | Outpatient (CLI) | payer MEDICAID, SELFPAY ==
[2019-02-21 11:43] VITALS: BMI 29.2
[2019-02-26 15:27] LABS: HPV Reflexed? NOT INDICATED
== END | disposition home or self-care (01) ==
LOC: LABSPEC 13:17
PROVIDERS: Visit Provider Obstetrics & Gynecology
DX: Z12.4 Encounter for screening for malignant neoplasm of cervix (principal)
CPT/HCPCS: 87624; 88175; G0145

== ENCOUNTER → 2019-04-07 08:30 | Outpatient (CLI) | payer MEDICAID, SELFPAY ==
--- NOTE | 2019-04-07 08:41 | RAD_ITS ---
STUDY: X-RAY - PELVIS AND BILATERAL HIPS REASON FOR EXAM: Female, 38 years old. Pain, stiffness TECHNIQUE: AP view of the pelvis.? 2 views of the right hip, and 2 views of the left hip were obtained. COMPARISON: None. FINDINGS: There is a non-specific bowel gas pattern. Normal visualized soft tissue structures. Normal bilateral iliac wings, sacroiliac joints and visualized sacrum. Normal bilateral superior and inferior pubic rami. Normal pubic symphysis. Normal bilateral ischial tuberosities. Normal visualized right femoral head. Normal right acetabulum. Normal right hip joint. Normal visualized left femoral head. Normal left acetabulum. Normal left hip joint. RAD/Hips B/L min 2 views w/ Pelvis IMPRESSION: Normal x-ray examination of the pelvis and bilateral hips. Electronically Signed: Freddy Marcus MD at 17:14 EDT , Service support ,
== END ==
PROVIDERS: Family Provider Family Medicine; PCP Family Medicine; Referring Provider Family Medicine; Visit Provider Family Medicine
DX: M25.559 Pain in unspecified hip (principal)
CPT/HCPCS: 73521

== ENCOUNTER 2019-04-30 16:37 | Emergency (ER) | payer MEDICAID, SELFPAY ==
[2019-04-30 16:38] VITALS: BP 127/93; PULSE 100; RESP 13; TEMP 36.9; O2SAT 99; BMI 26.3
--- NOTE | 2019-04-30 17:03 | ED.DCSUM_ITS ---
History of Present Illness Chief Complaint: Dental Informant: Patient Onset: Days - 3 Context: Gradual Onset Timing: Continuous Narrative: Patient is a 38-year-old female with history of tobacco use and insulin-dependent diabetes mellitus presenting with dental pain and facial pain. Patient had a root canal of her top right first molar 2 days ago. She notes that since then she has had worsening pain and pressure in her right cheek area. She has no associated headache. She called her dentist which is [facility] in [place]. She was told either come in today or Friday but states that she is having a hard time going in because she is working during those times. She denies any fever chills. Denies any swelling in her mouth or difficulty swallowing. She continues to smoke cigarettes. She last had ibuprofen at 5 AM this morning and has had none since. She denies any other complaints at this time. Past Medical History - Allergies and Home Meds Allergies/Adverse Reactions: Allergies No Known Allergies Allergy (Verified 04/30/19 16:42) Primary Care Physician: Rajesh Frye MD [Primary Care Provider] - Past Medical History: - - Insulin-dependent diabetes mellitus Surgical History: noncontributory, - - Left shoulder surgery. Smoking Status: Current every day smoker - Family History Maternal Family History: Reports: No pertinent history Paternal Family History: Reports: No pertinent history Review of Systems All systems negative except as indicated ENT: Reports: - - Right cheek pain, right upper dental pain Physical Exam Vital Signs/Narrative: Vital Signs Temp Pulse Resp BP Pulse Ox 04/30/19 16:38 98.5 F 100 13 127/93 H 99 Inital Vital Signs reviewed: Yes General: Well nourished, Well developed, No Acute Distress Head: Normocephalic, Atraumatic Eyes: Perrl, EOMI ENT: Moist mucous membranes, No rhinorrhea, Sinus tenderness - Right maxillary sinus, minor, - - Subtle swelling of the right cheek present. No dental tenderness, multiple fillings in place, mild vehicle tenderness around right upper incisors and front molars, sublingual mucosa is soft Neck: Supple, Nontender Cardiovascular: Regular rate, Regular rhythm, No murmurs Respiratory: No distress, CTA bilaterally, Chest nontender Abdomen: Soft, Nontender, Nondistended, Normal bowel sounds Back: Nontender, Normal Inspection Extremities: Nontender, No edema Skin: Normal color, No rash Neurological: Alert, Oriented x3, Cranial nerves II-XII grossly intact, Normal Strength, Normal Sensation Psychological: Normal affect, Normal Mood Diagnostic/Tx/Re-eval - Medical Decision Making Patient is evaluated for pain associated with a recent dental procedure. She has mild facial swelling associated with this. I suspect these are normal changes after a root canal. Patient will be given a dose of Toradol in the ER. She is empirically prescribed penicillin in case there is a component of infection especially the patient is a diabetic and continues to smoke. She is encouraged to follow-up with her dentist. She currently does not have signs of an obvious abscess or soft tissue infection. Patient is counseled on signs and symptoms requiring return to the emergency room. Patient verbalizes agreement and understand this plan. Patient discharged home in stable and improved condition. ED Disposition - Plan for ED Patient: Disposition: Home or Assisted Living Diagnosis: History of recent dental procedure, Pain, dental Instructions: Dental Pain Prescriptions: Penicillin Vk [Pen-Vee K 250MG] 500 mg PO 4X/DAY #28 tab Prescription Printed Referrals: Rajesh Frye MD [Primary Care Provider] - Additional Instructions: Please make sure that you alternate Tylenol and Motrin every 4 hours for pain control. Is very importantly follow-up with your dentist. Please stop using cigarettes as this will help the dental healing process. You have been prescribed a prescription for penicillin. We like to wait 24 hours to see if you improve before starting the antibiotics that is acceptable. Return to the emergency room if you develop any worsening symptoms including fever or difficulty swallowing.
[2019-04-30] MEDS: Ketorolac 15 MG/ML Vial IM (17:13)
[2019-04-30 17:43] VITALS: BP 121/84; RESP 18
== END 2019-04-30 17:44 | disposition home or self-care (01) ==
PROVIDERS: Emergency Provider Emergency Medicine; Family Provider Family Medicine; PCP Family Medicine
DX: K08.89 Other specified disorders of teeth and supporting structures (principal); Z98.818 Other dental procedure status; E11.9 Type 2 diabetes mellitus without complications; F17.210 Nicotine dependence, cigarettes, uncomplicated; Z79.4 Long term (current) use of insulin
CPT/HCPCS: 96372; 99283

== ENCOUNTER 2019-05-04 19:20 | Emergency (ER) | payer MEDICAID, SELFPAY ==
[2019-05-04 19:22] VITALS: BP 129/87; PULSE 96; RESP 16; TEMP 36.9; O2SAT 98; BMI 26.2
--- NOTE | 2019-05-04 20:23 | CT_ITS ---
STUDY: CT FACIAL BONES WITH CONTRAST REASON FOR EXAM: Female, 38 years old. Right-sided facial pain and swelling. RADIATION DOSAGE (If Supplied By Facility): CTDIvol = ( 29.38 ) mGy, DLP = ( 635.61 ) mGycm TECHNIQUE: The patient was scanned in a multi detector CT scanner. Transaxial imaging was performed following the intravenous administration of IV 100mL Isovue-300 100ML. Sagittal and coronal images were reconstructed. Individualized dose optimization techniques were used for this CT. COMPARISON: None. FINDINGS: Previous root canal right maxillary posterior premolar. A periapical lucency surrounds the root of this tooth, eroding through the buccal alveolar ridge of the maxilla, and communicating with an overlying 2.1 x 1.0 x 1.0 cm TRV X AP X craniocaudad abscess abutting the anterior/buccal surface of the maxilla, with the anterior facial vein coursing lateral to the abscess. Adjacent cellulitis. No soft tissue air. No retro-orbital involvement or proptosis. Mild reactive adjacent cervical lymphadenopathy. Moderate right maxillary sinus mucosal thickening. The periapical lucency of the root of the right maxillary posterior premolar might also communicate with the right maxillary sinus. No paranasal sinus air-fluid levels. Paranasal sinuses, mastoid air cells and middle ears otherwise patent. Evidence of fairly recent loss or extraction of the left mandibular second molar with visible socket. Several dental fillings, no other acute dental lesions are evident. Patent vasculature, no atherosclerosis. 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 The left pedicle, facet and lamina of C3 are present. Resulting focal leftward scoliotic curvature centered at C2-3. CT/Sinus/Facial Bone WITH Contras IMPRESSION: Odontogenic infection arising from a periapical lucency surrounding the root of the right maxillary posterior premolar. This includes a 2.1 cm in greatest dimension abscess abutting the anterior/buccal surface of the maxilla and adjacent odontogenic cellulitis. Moderate right maxillary sinus mucosal thickening; this might also be odontogenic; there may be communication with the periapical lucency of the right maxillary posterior premolar although this is not definitive. The patient is status post previous root canal of this tooth. Other chronic findings as above. Electronically Signed: Adriano Escalante, at 21:25 EDT Tel , Service support ,
[2019-05-04] MEDS: 0.9% Normal Saline 1,000 ML 1000 ML IV (20:40)
[2019-05-04] MEDS: Morphine 4 MG/ML Syringe IV (20:42)
[2019-05-04 20:52] LABS: Absolute Lymphocyte Count 2.34 X10^3/uL (0.83-4.51); Absolute Neutrophil Count 8.9 X10^3/uL (2.0-7.7); Basophil# 0.06 X10^3/uL; Basophil% 0.5 % (0-1); Eosinophil# 0.05 X10^3/uL; Eosinophils% 0.4 % (0-5); Hematocrit 42.3 % (37-47); Hemoglobin 14.2 g/dL (12.0-15.0); Lymphocyte # 2.34 X10^3/ul (4.0); Lymphocyte % 19.1 % (19-41); Mean Corp Hgb Conc 33.6 g/dL (32-36); Mean Corpuscular Hgb 30.7 pg (27.0-32.0); Mean Corpuscular Volume 91.6 fL (81-99); Mean Platelet Vol. 10.1 fl (6.2-12.0); Monocyte# 0.81 X10^3/uL; Monocyte% 6.6 % (0-10); NRBC Flagged by Analyzer 0 % (0-5); Neutrophil # 8.92 X10^3/uL (2.7-7.7); Platelet Count 280 K/mm3 (150-450); RBC Distribution Width CV 12.5 % (11.6-14.6); RBC Distribution Width SD 41.7 fl (35.1-43.9); Red Blood Count 4.62 M/mm3 (4.2-5.4); White Blood Count 12.2 K/mm3 (4.4-11.0)
[2019-05-04 21:16] LABS: Anion Gap 7 (5-15); BUN 5 mg/dL (7-18); BUN/Creat Ratio 7.4 RATIO (10-20); Chloride 102 mmol/L (98-107); Creatinine, Serum 0.67 mg/dL (0.55-1.02); EST Glomerular Filtration Rate 105 mL/min (>60); Est Glom Filt Rate - Afr Amer 127 mL/min (>60); Estimated Creatinine Clearance 96.02 ml/min; Glucose 294 mg/dL (74-106); Potassium 3.6 mmol/L (3.5-5.1); Sodium Level 137 mmol/L (136-145)
--- NOTE | 2019-05-04 22:24 | ED.DCSUM_ITS ---
History of Present Illness Chief Complaint: Dental Informant: Patient Onset: Days Context: Gradual Onset Timing: Continuous Narrative: Patient is a 38-year-old female presenting with worsening dental pain, facial pain and facial swelling. Patient had a root canal of her right top premolar last week. Since then she has had continued pain and swelling. She was placed on penicillin a couple days ago patient states she is been taking it was continuing to have worsening symptoms. She denies any fever or chills. She denies any difficulty swallowing. She has not been able to follow-up with her dentist because of scheduling conflicts. She denies any other complaints at this time. Past Medical History - Allergies and Home Meds Allergies/Adverse Reactions: Allergies No Known Allergies Allergy (Verified 05/04/19 19:21) Primary Care Physician: Rajesh Frye MD [Primary Care Provider] - Past Medical History: - - DM 1 Surgical History: noncontributory, - - Left shoulder surgery. Smoking Status: Current every day smoker - Family History Maternal Family History: Reports: No pertinent history Paternal Family History: Reports: No pertinent history Review of Systems All systems negative except as indicated ENT: Reports: - - Right upper dental pain, right facial swelling and pain Physical Exam Vital Signs/Narrative: Vital Signs Temp Pulse Resp BP Pulse Ox 05/04/19 19:22 98.5 F 96 16 129/87 H 98 Inital Vital Signs reviewed: Yes General: Well nourished, Well developed, No Acute Distress Head: Normocephalic, Atraumatic Eyes: Perrl, EOMI, - - No proptosis ENT: Moist mucous membranes, No rhinorrhea, TM's clear, - - Fluctuance and tenderness palpation of the right upper premolar consistent with abscess. Right facial swelling, sublingual mucosa is soft. Neck: Supple, Nontender Cardiovascular: Regular rate, Regular rhythm, No murmurs Respiratory: No distress, CTA bilaterally, Chest nontender Abdomen: Soft, Nontender, Nondistended, Normal bowel sounds Back: Nontender, Normal Inspection Extremities: Nontender, No edema Skin: Normal color, No rash Neurological: Alert, Oriented x3, Cranial nerves II-XII grossly intact, Normal Strength, Normal Sensation Psychological: Normal affect, Normal Mood Diagnostic/Tx/Re-eval Clinical Impression(s) from Imaging Studies Facial/Sinus 05/04/19 20:23 IMPRESSION: Odontogenic infection arising from a periapical lucency surrounding the root of the right maxillary posterior premolar. This includes a 2.1 cm in greatest dimension abscess abutting the anterior/buccal surface of the maxilla and adjacent odontogenic cellulitis. Moderate right maxillary sinus mucosal thickening; this might also be odontogenic; there may be communication with the periapical lucency of the right maxillary posterior premolar although this is not definitive. The patient is status post previous root canal of this tooth. Other chronic findings as above. Electronically Signed: Adriano Escalante, at 21:25 EDT Tel , Service support , Laboratory Data 05/04/19 05/04/19 20:40 20:40 WBC 12.2 H RBC 4.62 Hgb 14.2 Hct 42.3 MCV 91.6 MCH 30.7 MCHC 33.6 RDW Std Deviation 41.7 RDW Coeff of Aura 12.5 Plt Count 280 MPV 10.1 Immature Gran % (Auto) 0.400 Neut % (Auto) 73.0 H Lymph % (Auto) 19.1 [place] % (Auto) 6.6 Eos % (Auto) 0.4 Baso % (Auto) 0.5 Absolute Neuts (auto) 8.9 H Absolute Lymphs (auto) 2.34 Nucleated RBC % 0 Sodium 137 Potassium 3.6 Chloride 102 Carbon Dioxide 28.0 Anion Gap 7 BUN 5 L Creatinine 0.67 Estim Creat Clear Calc 96.02 Est GFR (MDRD) Af Amer 127 Est GFR (MDRD) Non-Af 105 BUN/Creatinine Ratio 7.4 L Glucose 294 H Calcium 9.0 - Medical Decision Making Patient is evaluated for worsening facial swelling and right-sided dental pain. She had a recent root canal but has not been able to follow-up with her dentist. Patient does continue to smoke cigarettes. She was prescribed penicillin and has been taking it however it is not helping her symptoms. Patient has a periapical abscess with associated cellulitis seen on CT. She does not have any significant sinus involvement or orbital involvement. Incision and drainage is performed with a good amount of purulence expressed. Patient is initially given morphine for pain control. She will be switched to clindamycin and given a short course of [place] for pain control. OARRS report is negative. Patient is heavily encouraged to follow-up with her dentist as well as to quit smoking. Patient is counseled on signs and symptoms requiring return to the emergency room. Patient verbalizes agreement and understand this plan. Patient discharged home in stable and improved condition. Procedures Procedure(s): Incision and drainage?dental abscess. Verbal consent obtained. 1.5 cc of 1% lidocaine without epinephrine is injected for a inferior alveolar nerve block. Once adequate analgesia is achieved #11 blade is used to make a stab incision in the area of maximal fluctuance. Significant amount of purulent drainage is expressed. Patient has good hemostasis afterwards. She tolerated procedure well with no immediate complications. ED Disposition - Plan for ED Patient: Disposition: Home or Assisted Living Diagnosis: Dental abscess, Facial cellulitis Instructions: DENTAL ABSCESS w/ Facial Cellulitis Prescriptions: Clindamycin [Cleocin] 450 mg PO TID 7 Days #63 cap Prescription Printed Hydrocodone Bitart/Apap 5-325 [[place] 5MG-325MG] 1 tab PO Q6H PRN PRN 3 Days #10 tab PRN Reason: Pain Prescription Printed Referrals: Rajesh Frye MD [Primary Care Provider] -
[2019-05-04] MEDS: HYDROcodone Bitartrate/Apap 5/325 Tablet PO (23:05)
[2019-05-04] MEDS: Clindamycin HCl 150 MG Capsule 450 MG PO (23:05)
[2019-05-04 23:10] VITALS: BP 141/94; PULSE 79; RESP 16; O2SAT 97
== END 2019-05-04 23:22 | disposition home or self-care (01) ==
PROVIDERS: Emergency Provider Emergency Medicine; Family Provider Family Medicine; PCP Family Medicine
DX: K04.7 Periapical abscess without sinus (principal); L03.211 Cellulitis of face; F17.210 Nicotine dependence, cigarettes, uncomplicated; E10.9 Type 1 diabetes mellitus without complications; Z79.84 Long term (current) use of oral hypoglycemic drugs; Z79.4 Long term (current) use of insulin
CPT/HCPCS: 41800; 70487; 80048; 85025; 96361; 96374; 99283; J7030; Q9967

== ENCOUNTER 2019-06-26 20:33 | Emergency (ER) | payer MEDICAID, SELFPAY ==
[2019-06-26 20:35] VITALS: BP 129/79; PULSE 95; RESP 16; TEMP 36.4; O2SAT 100; BMI 26.5
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
[2019-06-26] MEDS: HYDROcodone Bitartrate/Apap 5/325 Tablet PO (21:22)
[2019-06-26 22:04] LABS: D-Dimer Quantitative (DVT/PE) 0.33 FEU/ug/m (0.27-0.49)
--- NOTE | 2019-06-26 22:09 | ED.DEP ---
ED Disposition - Plan for ED Patient: Instructions: MUSCLE STRAIN, Extremity Prescriptions: Hydrocodone Bitart/Apap 5-325 [[place] 5MG-325MG] 1 tab PO Q4H PRN PRN 2 Days #14 tab PRN Reason: Pain Prescription Printed Referrals: Rajesh Frye MD [Primary Care Provider] - 3-5 Days
[2019-06-26 22:46] VITALS: RESP 16
== END 2019-06-26 22:47 | disposition home or self-care (01) ==
LOC: ED 21:05
PROVIDERS: Emergency Provider Emergency Medicine; Family Provider Family Medicine; PCP Family Medicine
DX: M79.661 Pain in right lower leg (principal); F17.200 Nicotine dependence, unspecified, uncomplicated; E11.40 Type 2 diabetes mellitus with diabetic neuropathy, unspecified; Z79.4 Long term (current) use of insulin; Z79.84 Long term (current) use of oral hypoglycemic drugs
CPT/HCPCS: 85379; 99284; A4216

== ENCOUNTER 2019-09-08 15:00 | Outpatient (RCR) | payer MEDICAID, SELFPAY ==
--- NOTE | 2019-08-04 15:52 | HP.PTEVAL_ITS ---
Patient's Visit Information JOSH SCHULER is a 38 year old F referred to Physical Therapy by Rajesh Frye MD with a diagnosis of L hip pain. Date of Evaluation: 08/04/19 Physical Therapist: Moises Baldwin DPT, OCS, CSCS - Visit Plan Frequency: 2-3x /Week Duration: 4-6 Weeks Plan: 2-3x/week for 2-4 weeks to start for... 1. rollout and stretch L ITB and quad and HS. 2. hip stab exercises L hip to HEP. 3. US nonthermal to L trochanter as needed with ES and ice if needed. - Subjective Findings: Has pain in L hip for about a year, starting last August. Had injection whcih helped somewhat in May. Still bothersome if sits too long or stand too fast. Sleeping on L side hurts, walking too far will give her burning through grocery store. Wakes her up if she sleeps on it. Employed starting next week on feet all day. was at [employer] on feet all day 8 hours which hurt. Basic ADLs are getting done. No hobbies. Spends day hanging out with friends adn walking at [facility] today with the nice weather. R calf got sore due to hip pain on L. - Pain L hip Pain Intensity (Out of 10): 5 Pain Intensity Range: 2, 10 - Objective Walsk normal today but hurts L hip. steps reciprocal with one rail and hurts to ascend with L. Trasnfers I and easily. Tender to touch L greater trochanter area minimally today and posterior. AROM B hips and knees symmetrical adn WFL. Ext rotation slightly painful L vs R. Knee and ankle AROM and strength symmetrical and 4/5, hip abd L 4- and ext 4 vs 4 on right. Flexion is 4- B and painfree. - GEETA, -FADDIR., - hip scour. SLS showns not trendelenberg. - Goals Goal 1:: ST: sleep without waking at night due to pain Goal Time Frame: 2-4 Weeks Goal 2:: No tenderness with palpation or gait or steps Goal Time Frame: 2-4 Weeks Goal 3:: LT goal: Feel 90% better with pain no greater than 1/10 adn intermittent. Goal Time Frame: 4-6 Weeks Goal 4:: I approp management condition Goal Time Frame: 4-6 Weeks - Rehabilitation Potential Physical Therapy Diagnosis: L hip pain, likely torchanteric bursitis Rehabilitation Potential: Fair - Anticipated Interventions Patient/Client Instruction: Educate patient on: Condition, Plan of Care For the Purpose of:: To decrease pain, To improve muscle performance and motor function, To improve performance and independence with ADL's, To improve gait and locomotor functions Therapeutic Exercise to Include: Strength training, Postural training, Flexibilty training For the Purpose of:: To decrease pain, To improve muscle performance and motor function, To improve ability of physical actions for home/community/work/leisure, To improve gait and locomotor functions Manual Therapy Techniques to Include: Passive ROM, Soft tissue mobilization For the Purpose of:: To increase ROM TENS: Yes Cryotherapy (ice pack, ice massage): Yes Ultrasound (thermal/non thermal): Yes - trochanter For the Purpose of:: To decrease pain, To decrease swelling/inflammation Thank you for the opportunity to evaluate your patient. For Medicare and Medicare HMO plans, please review the plan of care and approve it. It will need to be FAXED BACK to us at [phone] for Medicare purposes. For Medicare only, by signing this I certify the plan of care. Please let me know if there are questions or concerns regarding this plan of care. Physician Signature: Date:
--- NOTE | 2019-10-26 13:45 | HP.PT.NRP ---
JOSH SCHULER was seen in my office for initial evaluation on 08/04/19. The following Plan of Care was established for this patient: Initial Frequency: 2-3x /Week Initial Duration: 4-6 Weeks Patient/Client Instruction: Educate patient on: Condition, Plan of Care For the Purpose of:: To decrease pain, To improve muscle performance and motor function, To improve performance and independence with ADL's, To improve gait and locomotor functions Therapeutic Exercise to Include: Strength training, Postural training, Flexibilty training For the Purpose of:: To decrease pain, To improve muscle performance and motor function, To improve ability of physical actions for home/community/work/leisure, To improve gait and locomotor functions Manual Therapy Techniques to Include: Passive ROM, Soft tissue mobilization For the Purpose of:: To increase ROM TENS: Yes Cryotherapy (ice pack, ice massage): Yes Ultrasound (thermal/non thermal): Yes - trochanter For the Purpose of:: To decrease pain, To decrease swelling/inflammation This patient was last seen in our office 09/08/19. Pertinent comments regarding their Physical therapy will appear below: Pt seen 7 visits of POC and was at least 50% better. She cancelled her last number of visits without rescheduling. At this point, it has been nearly two months and I will discontinue due to nonattendance. At this point I will be discontinuing this patient from physical therapy. I would be happy to see this patient again in the future if found appropriate by the physician. Thank you! Moises Baldwin, DPT, OCS, CSCS
== END 2019-09-08 19:00 | disposition home or self-care (01) ==
LOC: PT 15:00
PROVIDERS: Family Provider Family Medicine; PCP Family Medicine; Referring Provider Family Medicine; Visit Provider Family Medicine
DX: M25.552 Pain in left hip (principal)
CPT/HCPCS: 97110; 97161; 97530

== ENCOUNTER → 2019-12-10 16:28 | Outpatient (CLI) | payer MEDICAID, SELFPAY ==
[2019-08-16 10:13] VITALS: BMI 26.6
[2019-12-10 18:25] LABS: Absolute Lymphocyte Count 3.25 X10^3/uL (0.83-4.51); Absolute Neutrophil Count 4.5 X10^3/uL (2.0-7.7); Basophil# 0.06 X10^3/uL; Basophil% 0.7 % (0-1); Eosinophil# 0.08 X10^3/uL; Hematocrit 42.5 % (37-47); Hemoglobin 14.1 g/dL (12.0-15.0); Lymphocyte # 3.25 X10^3/ul (4.0); Lymphocyte % 38.9 % (19-41); Mean Corp Hgb Conc 33.2 g/dL (32-36); Mean Corpuscular Hgb 29.7 pg (27.0-32.0); Mean Corpuscular Volume 89.7 fL (81-99); Mean Platelet Vol. 11.2 fl (6.2-12.0); Monocyte# 0.48 X10^3/uL; Monocyte% 5.7 % (0-10); NRBC Flagged by Analyzer 0 % (0-5); Neutrophil # 4.46 X10^3/uL (2.7-7.7); Neutrophil % 53.3 % (47-70); Platelet Count 272 K/mm3 (150-450); RBC Distribution Width CV 12.8 % (11.6-14.6); Red Blood Count 4.74 M/mm3 (4.2-5.4); White Blood Count 8.4 K/mm3 (4.4-11.0)
[2019-12-10 18:53] LABS: ALB/GLOB Ratio 1.1 RATIO (0.9-2.4); AST(SGOT) 8 U/L (15-37); Alanine Aminotransfer ALT/SGPT 21 U/L (13-56); Albumin, Serum 3.9 g/dL (3.2-5.0); Alkaline Phosphatase 125 U/L (45-117); Anion Gap 5 (5-15); BUN 9 mg/dL (7-18); BUN/Creat Ratio 9.2 RATIO (10-20); Chloride 98 mmol/L (98-107); Cholesterol 171 mg/dL (200); Creatinine, Serum 0.98 mg/dL (0.55-1.02); EST Glomerular Filtration Rate 68 mL/min (>60); Est Glom Filt Rate - Afr Amer 82 mL/min (>60); Ferritin 18 ng/mL (8-252); Globulin 3.5 g/dL (2.2-4.2); Glucose 461 mg/dL (74-106); High Density Lipoprotein 36 mg/dL; Iron 105 ug/dL (50-170); Iron Binding Capacity,Total 340 ug/dL (250-450); Potassium 3.6 mmol/L (3.5-5.1); Protein, Total 7.4 g/dL (6.4-8.2); Sodium Level 132 mmol/L (136-145); Triglycerides 158 mg/dL; Very Low Density Lipoprotein 32 mg/dL (5-40)
== END ==
PROVIDERS: PCP Family Medicine; Referring Provider Family Medicine; Visit Provider Family Medicine
DX: E78.1 Pure hyperglyceridemia (principal); E61.1 Iron deficiency
CPT/HCPCS: 36415; 80053; 80061; 82728; 83540; 83550; 85025

== ENCOUNTER → 2020-04-19 16:16 | Outpatient (CLI) | payer MEDICAID, SELFPAY ==
[2020-03-17 13:46] VITALS: BMI 26.6
[2020-04-22 03:07] LABS: Chlamydia By Nucleic Acid AMP Negative (Negative)
[2020-04-22 06:08] LABS: Gonococcus By Nucleic Acid AMP Negative (Negative)
== END ==
PROVIDERS: PCP Family Medicine; Visit Provider Obstetrics & Gynecology
DX: Z11.3 Encounter for screening for infections with a predominantly sexual mode of transmission (principal)
CPT/HCPCS: 87491; 87591

== ENCOUNTER 2020-06-23 21:43 | Emergency (ER) | payer MEDICAID, SELFPAY ==
[2020-03-17 13:46] VITALS: BMI 26.6
[2020-06-23 21:46] VITALS: BP 133/72; PULSE 89; RESP 16; TEMP 36.6; O2SAT 100; BMI 24.9
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
[2020-06-23 22:53] LABS: Anion Gap 6 (5-15); BUN 6 mg/dL (7-18); BUN/Creat Ratio 8.6 RATIO (10-20); Calcium,Total 8.8 mg/dL (8.5-10.1); Chloride 111 mmol/L (98-107); Creatinine, Serum 0.69 mg/dL (0.55-1.02); EST Glomerular Filtration Rate 101 mL/min (>60); Est Glom Filt Rate - Afr Amer 122 mL/min (>60); Estimated Creatinine Clearance 92.34 ml/min; Glucose 278 mg/dL (74-106); Potassium 3.7 mmol/L (3.5-5.1); Sodium Level 147 mmol/L (136-145)
--- NOTE | 2020-06-23 22:58 | ED.DEP ---
ED Disposition - Plan for ED Patient: Disposition: Home or Assisted Living Instructions: ED Alcohol Intoxication Referrals: Rajesh Frye MD [Primary Care Provider] - Additional Instructions: Plenty of fluids and rest. No further alcohol for the next 24 hours. Follow-up with your primary care physician.
--- NOTE | 2020-06-23 23:27 | ED.RN ---
Dr. Vee made aware of critical ETOH result of 340.
[2020-06-24] VITALS: RESP 16
[2020-06-24 01:41] VITALS: BP 91/58; PULSE 101; RESP 20; O2SAT 98
[2020-06-24 05:00] VITALS: BP 117/80; PULSE 91; RESP 15; O2SAT 99
[2020-06-24 08:07] VITALS: BP 116/69; PULSE 87; O2SAT 100
== END 2020-06-24 09:45 | disposition home or self-care (01) ==
PROVIDERS: Emergency Provider Emergency Medicine; PCP Family Medicine
DX: F10.129 Alcohol abuse with intoxication, unspecified (principal); E11.65 Type 2 diabetes mellitus with hyperglycemia; F17.200 Nicotine dependence, unspecified, uncomplicated; Z79.4 Long term (current) use of insulin
CPT/HCPCS: 80048; 80320; 99285; A4216; G0480

== ENCOUNTER → 2020-07-02 14:34 | Outpatient (CLI) | payer MEDICAID, SELFPAY ==
[2020-07-02 13:47] VITALS: BMI 23.4
== END ==
PROVIDERS: PCP Family Medicine; Visit Provider Physician Assistant
DX: Z11.59 Encounter for screening for other viral diseases (principal)
CPT/HCPCS: 87635; U0003

== ENCOUNTER 2020-08-05 01:44 | Emergency (ER) | payer MEDICAID, SELFPAY ==
[2020-07-02 13:47] VITALS: BMI 23.4
[2020-08-05 01:45] VITALS: BP 130/92; PULSE 107; RESP 16; TEMP 35.7; O2SAT 100; BMI 23.3
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
--- NOTE | 2020-08-05 03:19 | ED.DEP ---
ED Disposition - Plan for ED Patient: Instructions: ED Concussion Referrals: Iva Wells MD [Primary Care Provider] -
[2020-08-05 03:24] VITALS: BP 111/75; PULSE 105; RESP 17; O2SAT 99
== END 2020-08-05 03:41 | disposition home or self-care (01) ==
PROVIDERS: Emergency Provider Emergency Medicine; PCP Family Medicine
DX: S06.0X9A Concussion with loss of consciousness of unspecified duration, initial encounter (principal); S16.1XXA Strain of muscle, fascia and tendon at neck level, initial encounter; X58.XXXA Exposure to other specified factors, initial encounter; Z79.4 Long term (current) use of insulin
CPT/HCPCS: 70450; 72125; 99282

== ENCOUNTER 2020-09-06 07:23 | Emergency (ER) | payer MEDICAID, SELFPAY ==
[2020-09-06 07:24] VITALS: BP 153/93; PULSE 120; RESP 17; TEMP 36.1; O2SAT 99; BMI 24.7
[2020-09-06 08:19] VITALS: TEMP 36.6; BMI 24.7
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
[2020-09-06] MEDS: Naproxen 500 MG Tablet PO (10:29)
[2020-09-06 10:30] VITALS: RESP 16
[2020-09-06 11:16] VITALS: BP 112/77; PULSE 103; RESP 19; O2SAT 98
== END 2020-09-06 11:20 | disposition home or self-care (01) ==
PROVIDERS: Emergency Provider Emergency Medicine; PCP Family Medicine
DX: S09.90XA Unspecified injury of head, initial encounter (principal); S80.01XA Contusion of right knee, initial encounter; F17.200 Nicotine dependence, unspecified, uncomplicated; X58.XXXA Exposure to other specified factors, initial encounter
CPT/HCPCS: 70450; 72125; 73564; 99283

== ENCOUNTER 2020-09-20 01:56 | Emergency (ER) | payer MEDICAID, SELFPAY ==
[2020-09-20 01:57] VITALS: BP 131/92; PULSE 88; RESP 16; TEMP 35.8; O2SAT 99; BMI 24.8
--- NOTE | 2020-09-20 02:09 | RAD_ITS ---
STUDY: X-RAY - RIGHT FOOT CLINICAL: Female, 39 years old. foot pain TECHNIQUE: 3 view(s) of the foot. COMPARISON: None. FINDINGS: Normal talus, calcaneus, and tarsal bones. Normal visualized subtalar, talonavicular, calcaneocuboid, tarsal and tarsometatarsal articulations. Normal metatarsi. Normal metatarsophalangeal joint of the great toe. Normal tibial and fibular sesamoid bones. Normal interphalangeal joint of the great toe. Normal phalanges of the great toe. Normal second through fifth metatarsophalangeal joints. Normal interphalangeal joints and phalanges of the lesser toes. The soft tissue structures are unremarkable. RAD/Foot min 3 Views IMPRESSION: Normal x-ray examination of the foot. Electronically Signed: Goran Solorio DO at 2:34 EST Tel , Service support ,
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
[2020-09-20] MEDS: Naproxen 500 MG Tablet PO (02:12)
[2020-09-20 02:55] VITALS: RESP 16
--- NOTE | 2020-09-20 02:56 | ED.RN ---
PT TOLD BY THIS RN THAT SHE CAN REMAIN IN ROOM UNTIL SHE HAS A SAFE PLACE TO GO. PT GIVEN ONE [employer] CARD AND DENIES ANY OTHER NEEDS AT THIS TIME. PT OFFERED FOOD/ DRINK
== END 2020-09-20 02:57 | disposition home or self-care (01) ==
PROVIDERS: Emergency Provider Student in an Organized Health Care Education/Training Program; PCP Family Medicine
DX: S90.31XA Contusion of right foot, initial encounter (principal); S00.03XA Contusion of scalp, initial encounter; F17.200 Nicotine dependence, unspecified, uncomplicated; E11.42 Type 2 diabetes mellitus with diabetic polyneuropathy; F41.9 Anxiety disorder, unspecified; Y04.8XXA Assault by other bodily force, initial encounter; Z79.4 Long term (current) use of insulin; Z79.899 Other long term (current) drug therapy
CPT/HCPCS: 73630; 99282

== ENCOUNTER 2020-11-22 22:51 | Emergency (ER) | payer MEDICAID, SELFPAY ==
[2020-09-25 09:34] VITALS: BMI 25.0
[2020-11-22 22:53] VITALS: BP 150/90; PULSE 100; RESP 16; TEMP 35.7; O2SAT 100; BMI 24.7
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
--- NOTE | 2020-11-22 23:04 | RAD_ITS ---
HISTORY: pain COMPARISON: None FINDINGS: # of images incl. paperwork: 3 XR Ankle Min 3 Views : No fracture or osseous abnormality. The ankle mortise is intact. Soft tissue swelling is not seen. RAD/Ankle min 3 Views IMPRESSION: Normal Left ankle at 2322 Reported and signed by: Emir Ojeda MD Electronically Signed: Emir Ojeda MD at 23:21 EDT Tel , Service support ,
== END 2020-11-23 00:12 | disposition home or self-care (01) ==
PROVIDERS: Emergency Provider Emergency Medicine; PCP Family Medicine
DX: S93.402A Sprain of unspecified ligament of left ankle, initial encounter (principal); F10.129 Alcohol abuse with intoxication, unspecified; F17.200 Nicotine dependence, unspecified, uncomplicated; E11.9 Type 2 diabetes mellitus without complications; Z79.4 Long term (current) use of insulin; X58.XXXA Exposure to other specified factors, initial encounter
CPT/HCPCS: 73610; 82077; 99283

== ENCOUNTER 2020-12-09 17:42 | Emergency (ER) | payer MEDICAID, SELFPAY ==
[2020-12-09 17:43] VITALS: BP 122/82; PULSE 110; RESP 20; TEMP 36.6; O2SAT 98; BMI 23.4
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
[2020-12-09 19:02] LABS: Basophil# 0.05 X10^3/uL; Basophil% 0.8 % (0-1); Eosinophil# 0.06 X10^3/uL; Eosinophils% 0.9 % (0-5); Hematocrit 48.1 % (37-47); Lymphocyte % 40.9 % (19-41); Mean Corp Hgb Conc 33.3 g/dL (32-36); Mean Corpuscular Hgb 31.4 pg (27.0-32.0); Mean Corpuscular Volume 94.5 fL (81-99); Mean Platelet Vol. 11.6 fl (6.2-12.0); Monocyte# 0.58 X10^3/uL; Monocyte% 9.1 % (0-10); NRBC Flagged by Analyzer 0 % (0-5); Neutrophil # 3.04 X10^3/uL (2.7-7.7); POSITIVE COUNT YES; RBC Distribution Width CV 13.7 % (11.6-14.6); RBC Distribution Width SD 47.6 fl (35.1-43.9); Red Blood Count 5.09 M/mm3 (4.2-5.4); White Blood Count 6.4 K/mm3 (4.4-11.0)
[2020-12-09 19:05] LABS: Internal QC Validated? YES +Cl - CLEAR BKGD; Pregnancy, Serum, hCG Quali. NEGATIVE Negative
[2020-12-09 19:15] LABS: Anion Gap 9 (5-15); BUN 5 mg/dL (7-18); BUN/Creat Ratio 6.6 RATIO (10-20); Calcium,Total 8.5 mg/dL (8.5-10.1); Chloride 105 mmol/L (98-107); Creatinine, Serum 0.75 mg/dL (0.55-1.02); EST Glomerular Filtration Rate 91 mL/min (>60); Est Glom Filt Rate - Afr Amer 111 mL/min (>60); Estimated Creatinine Clearance 84.96 ml/min; Glucose 266 mg/dL (74-106); Potassium 4.1 mmol/L (3.5-5.1); Sodium Level 141 mmol/L (136-145)
[2020-12-09 19:38] LABS: Differential Indicated SCAN CRITERIA MET
[2020-12-09 19:39] LABS: Differential Comment SCANNED; Platelet Estimate ADEQUATE (ADEQ)
[2020-12-09] MEDS: 0.9% Normal Saline 1,000 ML 999 ML IV (19:43)
[2020-12-09 20:02] VITALS: BP 94/80; PULSE 80; RESP 16; O2SAT 98
[2020-12-09 22:00] VITALS: BP 104/72; PULSE 97; RESP 14; O2SAT 97
[2020-12-09 23:44] VITALS: BP 114/89
== END 2020-12-09 23:45 | disposition home or self-care (01) ==
PROVIDERS: Emergency Provider Emergency Medicine; PCP Family Medicine
DX: E11.65 Type 2 diabetes mellitus with hyperglycemia (principal); F10.129 Alcohol abuse with intoxication, unspecified; F17.200 Nicotine dependence, unspecified, uncomplicated; Z91.14 Patient's other noncompliance with medication regimen; Z79.4 Long term (current) use of insulin
CPT/HCPCS: 80048; 82009; 82077; 84703; 85025; 96360; 96361; 99284; J7030; A4216

== ENCOUNTER 2020-12-19 02:14 | Emergency (ER) | payer MEDICAID, SELFPAY ==
[2020-12-19 02:14] VITALS: BP 125/81; PULSE 108; RESP 16; TEMP 36.8; O2SAT 100; BMI 23.4
--- NOTE | 2020-12-19 02:25 | RAD_ITS ---
STUDY: X-RAY - RIGHT HAND REASON FOR EXAM: Female, 39 years old. injury -- right 4 th finger TECHNIQUE: 3 view(s) of the hand. COMPARISON: None. FINDINGS: Normal radiocarpal articulation. Normal distal radioulnar joint. Normal visualized carpal bones. Normal carpal articulations Normal carpometacarpal articulation of the thumb. Normal second through fifth carpometacarpal joints. Normal metacarpi. Normal metacarpophalangeal joint of the thumb. Normal interphalangeal joint of the thumb. Normal proximal and distal phalanges of the thumb. Normal metacarpophalangeal joints of the second through fifth fingers. Normal proximal and distal interphalangeal joints of the second through fifth fingers. There is nondisplaced fracture of the middle phalanx of the ring finger. The soft tissue structures are unremarkable. RAD/Hand Min 3 Views IMPRESSION: There is nondisplaced fracture of the middle phalanx of the ring finger. Electronically Signed: José Miguel Lomas MD at 2:51 EDT Tel , Service support ,
--- NOTE | 2020-12-19 03:12 | EX.ED.UPPERE ---
HPI History of Present Illness Chief Complaint: Upper Extremity Injury Informant: patient Narrative Narrative: 39-year-old female got her right ring finger caught in a door tonight. She notes deformity and pain. [facility] Medical History (Updated 12/19/20 @ 03:[address] Bob Corona DO) Chronic headache Diabetes Difficulty balancing Pancreatitis Pneumonia Shoulder pain Vision abnormalities Home Medications gabapentin 800 mg PO TID 08/23/13 [History Last Taken 03/15/16] multivitamin with folic acid 1 tab PO DAILY 09/10/13 [History Last Taken 03/15/16] rosuvastatin 10 mg PO DAILY 02/15/19 [History Last Taken Unknown] norethindrone (contraceptive) 1 tab PO DAILY 06/26/19 [History Last Taken Unknown] atomoxetine 40 mg capsule 80 mg PO DAILY 08/16/19 [History Last Taken Unknown] buspirone 15 mg tablet 15 mg PO TID 08/16/19 [History Last Taken Unknown] trazodone 50 mg tablet 50 mg PO QHS PRN 08/16/19 [History Last Taken Unknown] pen needle, diabetic 33 gauge x 5/32 #100 ea 08/31/19 [Rx Last Taken Unknown] sertraline 100 mg PO DAILY 08/05/20 [History Last Taken Unknown] naproxen 500 mg PO BID PRN PRN #20 tab 09/06/20 [Rx Last Taken Unknown] insulin aspart U-100 100 unit/mL (3 mL) subcutaneous pen 8 unit SC TIDCM #15 ml MDD 40 09/25/20 [Rx Last Taken Unknown] insulin detemir U-100 100 unit/mL (3 mL) subcutaneous pen 25 unit SC DAILY ml 09/25/20 [History Last Taken Unknown] flash glucose sensor #2 ea 09/26/20 [Rx Last Taken Unknown] hydrocodone-acetaminophen 1 tab PO Q6H PRN PRN 3 Days #12 tablet 12/19/20 [Rx Last Taken Unknown] Allergy/AdvReac Type Severity Reaction Status Date / Time No Known Allergies Allergy Verified 12/19/20 02:17 Social History Smoking Status: Current every day smoker tobacco type: cigarettes alcohol intake: current alcohol intake frequency: holidays/special occasions only what type of physical activity do you participate in: walking frequency: 1-2 times per week ROS ROS ED Constitutional Constitutional ED: Denies chills or weight loss Eyes Eyes: Denies change in vision or diplopia ENT ENT ED: Denies ear pain, rhinorrhea or sore throat Cardiovascular Cardiovascular: Denies chest pain, orthopnea, palpitations or racing heartbeat Respiratory/Chest Respiratory/Chest: Denies cough, dyspnea or orthopnea Gastrointestinal Gastrointestinal: Denies abdominal pain, diarrhea, nausea or vomiting Genitourinary Genitourinary ED: Denies dysuria, hematuria or urinary frequency Musculoskeletal Musculoskeletal: Reports other Details: See history of present illness ; Denies arthralgias or myalgias Integumentary Denies abscess or rash Neurologic Neurologic: Denies headache(s) or weakness Psychiatric Psychiatric: Denies anxiety, depression, suicidal ideation or suicidal thoughts Endocrine Endocrinology: Denies polydipsia, polyphagia or polyuria Allergic/Immunologic Allergic/Immunologic ED: Denies mouth swelling, tongue swelling or urticaria EXAM Physical Exam Const Vital Signs: 12/19/20 02:14 Temperature 98.2 F Temperature Source Temporal Pulse Rate 108 H Respiratory Rate 16 Blood Pressure 125/81 H Blood Pressure Mean 95 Pulse Ox 100 Oxygen Delivery Method Room Air Positive well nourished and well developed General Appearance ED: well developed HEENT Reports normocephalic, head/scalp atraumatic and moist mucous membranes Eyes PERRL and EOMs intact bilaterally Neck no lymphadenopathy, supple and no JVD Resp normal respiratory effort and clear to auscultation bilaterally Cardio regular rate, regular rhythm and no murmurs GI normal to inspection, nondistended, normoactive bowel sounds and non-tender Palpation: soft Back/Spine no CVA tenderness and normal ROM Extremity Extremity Narrative: The distal phalanx is demonstrating a lateral deviation when compared to the right. Tender along the middle phalanx. Neurovascular intact. General Extremety ED: Negative for edema General Extremity: Negative for edema Neuro oriented x3 and CN's II-XII intact bilaterally Sensorium / Orientation: alert Motor Exam: strength 5/5 throughout Psych mental status grossly normal Mood & Affect: Negative for depressed or tearful Skin no rashes or lesions noted and no wounds MDM MDM MDM Narrative Medical decision making narrative: My interpretation of the plain films of the right hand is an acute fracture of the middle phalanx of the right ring finger. Patient underwent digital block. I attempted to reduce the finger. I can reduce it so that is straight but it is unstable and immediately goes to the lateral deviation. If I jai tape it to the long finger it remains in a straight position. However aluminum/foam splint does not allow it to stay straight. We talked about different options and how she wished to progressed. She may follow-up with orthopedics and they can talk about surgery for it. Alternatively she can jai tape it to its ring finger to try to keep it straight or use the AlumaFoam splint which ever she would prefer. Patient states that she is not that concerned about the lateral deformity. Radiography Diagnostic Testing: Radiology Impression Hand X-Ray 12/19/20 02:25 IMPRESSION: There is nondisplaced fracture of the middle phalanx of the ring finger. Electronically Signed: José Miguel Lomas MD at 2:51 EDT Tel , Service support , Discharge Plan Triage Chief Complaint: Upper Extremity Injury ED Provider: Bob Corona Dx/Rx/DC Orders Clinical Impression: Fracture of middle phalanx of finger of right hand Instructions: ED Fracture, Finger, Closed Prescriptions: New hydrocodone-acetaminophen [hydrocodone-acetaminophen] 1 TABLET tablet 1 tab PO Q6H PRN PRN (Reason: Pain) 3 Days Qty: 12 RF: 0 No Action atomoxetine [Strattera] 40 mg capsule 80 mg PO DAILY RF: 0 buspirone 15 mg tablet 15 mg PO TID RF: 0 trazodone 50 mg tablet 50 mg PO QHS PRN (Reason: Insomnia) RF: 0 insulin detemir U-100 100 unit/mL (3 mL) insulin pen 25 unit SC DAILY RF: 0 insulin aspart U-100 100 unit/mL (3 mL) insulin pen 8 unit SC TIDCM MDD 40 Qty: 15 RF: 3 (DME) FreeStyle Pamela 14 Day Sensor Kit See Rx Instructions .ROUTE .MEDSUPPLY Qty: 2 RF: 8 gabapentin 300 MG capsule 800 mg PO TID RF: 0 multivitamin with folic acid 1 TABLET tablet 1 tab PO DAILY RF: 0 rosuvastatin 10 MG tablet 10 mg PO DAILY RF: 0 norethindrone (contraceptive) 0.35 MG tablet 1 tab PO DAILY RF: 0 sertraline 100 MG tablet 100 mg PO DAILY RF: 0 naproxen 500 MG tablet 500 mg PO BID PRN PRN (Reason: Pain Score 4-10) Qty: 20 RF: 0 (DME) pen needle, diabetic [Advocate Pen Needle] 33 gauge x 5/32 needle See Rx Instructions .ROUTE .MEDSUPPLY Qty: 100 RF: 6 Primary Care Provider: Iva Wells Referrals: Iva Wells MD [Primary Care Provider] - Luis A Ardon DO [STAFF PHYSICIAN] - As soon as possible Disposition Disposition: Home, self care
[2020-12-19] MEDS: Lidocaine 1% (20 ml mdv) 20 ML Vial 5 ML INFILT (03:32)
== END 2020-12-19 03:36 | disposition home or self-care (01) ==
PROVIDERS: Emergency Provider Emergency Medicine; PCP Family Medicine
DX: S62.624A Displaced fracture of middle phalanx of right ring finger, initial encounter for closed fracture (principal); F17.210 Nicotine dependence, cigarettes, uncomplicated; X58.XXXA Exposure to other specified factors, initial encounter
CPT/HCPCS: 73130; 99282

== ENCOUNTER 2020-12-23 04:40 | Emergency (ER) | payer MEDICAID, SELFPAY ==
[2020-12-23 04:40] VITALS: BP 120/77; PULSE 112; RESP 18; TEMP 36.4; O2SAT 100; BMI 23.7
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
[2020-12-23 04:54] VITALS: BP 107/80; PULSE 107; RESP 15; O2SAT 100
[2020-12-23] MEDS: Ibuprofen 400 MG Tablet 800 MG PO (05:23)
== END 2020-12-23 05:28 | disposition home or self-care (01) ==
LOC: ED 05:05
PROVIDERS: Emergency Provider Emergency Medicine; PCP Family Medicine
DX: S20.319A Abrasion of unspecified front wall of thorax, initial encounter (principal); S50.312A Abrasion of left elbow, initial encounter; S00.03XA Contusion of scalp, initial encounter; F17.210 Nicotine dependence, cigarettes, uncomplicated; E11.9 Type 2 diabetes mellitus without complications; Y04.2XXA Assault by strike against or bumped into by another person, initial encounter; Z79.4 Long term (current) use of insulin
CPT/HCPCS: 99283